=== PATIENT | female | born 1955 | race Caucasian/White ===

== ENCOUNTER 2016-09-08 18:58 | Emergency (ER) | payer BC ==
--- NOTE | 2016-09-08 19:16 | EDM.PDOC ---
ED HPI Skin/Rash - General Chief Complaint: Laceration Stated Complaint: LACERATION ON TOP OF HEAD Time Seen by Provider: 09/08/16 19:06 Source: Reports: Patient History Limitations: Reports: No limitations - History of Present Illness INITIAL COMMENTS - FREE TEXT/NARRATIVE: HISTORY AND PHYSICAL: History of present illness: [] 61-year-old female status post apical scalp LAC as prior arrival. No loss of consciousness. No full chest and shortness of breath no headache or fevers. Patient bumped her head on something Review of systems: As per history of present illness and below otherwise all systems reviewed and negative. Past medical history: As per history of present illness and as reviewed below otherwise noncontributory. Surgical history: As per history of present illness and as reviewed below otherwise noncontributory. Social history: No reported history of drug or alcohol abuse. Family history: As per history of present illness and as reviewed below otherwise noncontributory. Physical exam: 5 mm apical scalp black hemostatic no bony tenderness or crepitus. Normal TMs bilateral. HEENT: Atraumatic, normocephalic, pupils reactive, negative for conjunctival pallor or scleral icterus, mucous membranes moist, throat clear, neck supple, nontender, trachea midline. Lungs: Clear to auscultation, breath sounds equal bilaterally, chest nontender. Heart: S1S2, regular, negative for clicks, rubs, or JVD. Abdomen: Soft, nondistended, nontender. Negative for masses or hepatosplenomegaly. Negative for costovertebral tenderness. Pelvis: Stable nontender. Genitourinary: Deferred. Rectal: Deferred. Extremities: Atraumatic, negative for cords or calf pain. Neurovascular unremarkable. Neuro: Awake, alert, oriented. Cranial nerves II through XII unremarkable. Cerebellum unremarkable. Motor and sensory unremarkable throughout. Exam nonfocal. Diagnostics: [] Therapeutics: [] Impression: [Scalp laceration] Plan: [Signs and symptoms consistent with less than one Centimeter scalp laceration hemostatic. Wound edges well approximated. Patient is asymptomatic no further workup or treatment indicated. Patient agrees with outpatient followup and strict return precautions given] Definitive disposition and diagnosis as appropriate pending reevaluation and review of above. - Related Data Allergies Allergy/AdvReac Type Severity Reaction Status Date / Time No Known Allergies Allergy Verified 09/08/16 19:01 Home Meds: Ambulatory Orders Medication Instructions Recorded Confirmed Levothyroxine [Synthroid] 1 tab PO DAILY 09/08/16 09/08/16 Past Medical History Cardiovascular History: Reports: Blood clots/VTE/DVT - Infectious Disease History Infectious Disease History: Reports: None - Past Surgical History GI Surgical History: Reports: Cholecystectomy Female Surgical History: Reports: section, Hysterectomy Musculoskeletal Surgical History: Reports: Knee replacement Social & Family History - Tobacco Use Smoking Status *Q: Never Smoker Second Hand Smoke Exposure: No ED ROS GENERAL - Review of Systems Review Of Systems: See Below (History of present illness) ED EXAM, SKIN/RASH Exam: See Below (History of present illness) Course - Vital Signs Last Recorded V/S: Last Vital Signs Temp 36.4 C 09/08/16 19:02 Pulse 65 09/08/16 19:02 Resp 16 09/08/16 19:02 BP 121/60 09/08/16 19:02 Pulse Ox 99 09/08/16 19:02 Departure - Departure Time of Disposition: 19:13 Disposition: Home, Self-Care 01 Condition: good Clinical Impression: Scalp laceration Instructions: Laceration Care, Adult, [id number] Referrals: PCP,None [Primary Care Provider] - Forms: ED Department Discharge Additional Instructions: wound care. return for signs of infection. motrin or tylenol as needed for soreness. pcp 2d for wound check.
== END 2016-09-08 19:20 | disposition home or self-care (01) ==
LOC: MW.ED 18:58
DX: S01.01XA Laceration without foreign body of scalp, initial encounter (principal); Z79.899 Other long term (current) drug therapy; Z90.49 Acquired absence of other specified parts of digestive tract; Z90.710 Acquired absence of both cervix and uterus; Z96.659 Presence of unspecified artificial knee joint; W22.8XXA Striking against or struck by other objects, initial encounter
CPT/HCPCS: 99282

== ENCOUNTER 2018-08-07 06:39 | Day surgery (SDC) | payer BC ==
[~2018-08-07 06:39] MED LIST: Lactated Ringers 1,000 ML IV SCH; Sodium Chloride 0.9% 10 ML SDV IV PRN; Sodium Chloride 0.9% 10 ML Syringe FLUSH PRN; Sodium Chloride 0.9% 2.5 ML Syringe FLUSH PRN
[2018-08-07] MEDS ORDERED: fentaNYL 100 MCG/2 ML SDV ONE (07:06)
[2018-08-07] MEDS ORDERED: Propofol 200 MG/20 ML SDV ONE (07:06)
[2018-08-07] MEDS ORDERED: Lidocaine 2% 5 ML SDV ONE (07:06)
--- NOTE | 2018-08-07 07:21 | PCM.PREANE ---
Preanesthetic Assessment - Anesthesia/Transfusion/Family Hx Anesthesia History: Prior Anesthesia Without Reaction Family History of Anesthesia Reaction: No Transfusion History: No Prior Transfusion(s) - Review of Systems General: No Symptoms Pulmonary: No Symptoms Cardiovascular: No Symptoms Gastrointestinal: No Symptoms Neurological: No Symptoms Other: Reports: None - Physical Assessment Height: 5 ft 3 in Weight: 80.286 kg ASA Class: 2 Mental Status: Alert & Oriented x3 Airway Class: Mallampati = 2 Dentition: Reports: Normal Dentition Thyro-Mental Finger Breadths: 3 Mouth Opening Finger Breadths: 3 ROM/Head Extension: Full Lungs: Clear to Auscultation, Normal Respiratory Effort Cardiovascular: Regular Rate, Regular Rhythm - Allergies Allergies/Adverse Reactions: Allergies Allergy/AdvReac Type Severity Reaction Status Date / Time No Known Allergies Allergy Verified 07/30/18 11:43 - Acknowledgements Anesthesia Type Planned: MAC Pt an Appropriate Candidate for the Planned Anesthesia: Yes Alternatives and Risks of Anesthesia Discussed w Pt/Guardian: Yes Pt/Guardian Understands and Agrees with Anesthesia Plan: Yes PreAnesthesia Questionnaire HEENT History: Reports: Other (See Below) Other HEENT History: wears glasses Cardiovascular History: Reports: Blood Clots/VTE/DVT Other Cardiovascular History: hx of DVT left leg after knee surgery Respiratory History: Reports: None Gastrointestinal History: Reports: None Genitourinary History: Reports: None 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: Musculoskeletal History: Reports: Fracture, Osteoarthritis Other Musculoskeletal History: hx of fx left arm as a child Neurological History: Reports: None Psychiatric History: Reports: None Endocrine/Metabolic History: Reports: Hypothyroidism, Obesity/BMI 30+ Hematologic History: Reports: None Immunologic History: Reports: None Oncologic (Cancer) History: Reports: None Dermatologic History: Reports: None - Infectious Disease History Infectious Disease History: Reports: None - Past Surgical History Head Surgeries/Procedures: Reports: None GI Surgical History: Reports: Appendectomy, Cholecystectomy, Colonoscopy Female Surgical History: Reports: Section, Hysterectomy Musculoskeletal Surgical History: Reports: Knee Replacement Other Musculoskeletal Surgeries/Procedures:: left partial knee arthroplasty - SUBSTANCE USE Smoking Status *Q: Never Smoker Recreational Drug Use History: No - HOME MEDS Home Medications: Home Meds Levothyroxine [Synthroid] 50 mcg PO DAILY 09/08/16 [History] Celecoxib 200 mg PO DAILY 07/30/18 [History] - CURRENT (IN HOUSE) MEDS Current Meds: Current Medications Lactated Ringer's (Ringers, Lactated) 1,000 mls @ 125 mls/hr IV ASDIRECTED JUAN M Sodium Chloride (Saline Flush) 10 ml FLUSH ASDIRECTED PRN PRN Reason: Keep Vein Open Sodium Chloride (Saline Flush) 2.5 ml FLUSH ASDIRECTED PRN PRN Reason: Keep Vein Open Sodium Chloride (Saline Flush) 10 ml FLUSH ASDIRECTED PRN PRN Reason: Keep Vein Open Sodium Chloride (Saline Flush) 2.5 ml FLUSH ASDIRECTED PRN PRN Reason: Keep Vein Open Sodium Chloride (Normal Saline) 10 ml IV ASDIRECTED PRN PRN Reason: IV Use Discontinued Medications Fentanyl (Sublimaze) Confirm Administered Dose 100 mcg .ROUTE .STK-MED ONE Stop: 08/07/18 07:07 Lidocaine (Xylocaine-Mpf 2%) Confirm Administered Dose 5 ml .ROUTE .STK-MED ONE Stop: 08/07/18 07:07 Propofol (Diprivan 20 Ml) Confirm Administered Dose 400 mg .ROUTE .STK-MED ONE Stop: 08/07/18 07:07
[2018-08-07] MEDS ORDERED: Glycopyrrolate 0.2 MG/ML SDV ONE (08:26)
[2018-08-07] MEDS ORDERED: ePHEDrine 50 MG/ML SDV ONE (08:34)
[2018-08-07] MEDS ORDERED: Phenylephrine/Normal Saline 100 MCG/ML 10 ML Syringe ONE (08:36)
--- NOTE | 2018-08-07 09:27 | PCM.POSTAN ---
POST ANESTHESIA ASSESSMENT - MENTAL STATUS Mental Status: Alert, Oriented - RESPIRATORY Respiratory Status: Respiratory Rate WNL, Airway Patent, O2 Saturation Stable - CARDIOVASCULAR CV Status: Pulse Rate WNL, Blood Pressure Stable - GASTROINTESTINAL GI Status: No Symptoms - POST OP HYDRATION Hydration Status: Adequate & Stable
--- NOTE | 2018-08-07 09:28 | PCM48HPAN ---
Post Anesthesia Note - EVALUATION WITHIN 48HRS OF ANESTHETIC Vital Signs in Normal Range: Yes Patient Participated in Evaluation: Yes Respiratory Function Stable: Yes Airway Patent: Yes Cardiovascular Function Stable: Yes Hydration Status Stable: Yes Pain Control Satisfactory: Yes Nausea and Vomiting Control Satisfactory: Yes Mental Status Recovered: Yes Resp Rate: 16
--- NOTE | 2018-08-07 10:12 | PCM.OPNOTE ---
- General Post-Op/Procedure Note Date of Surgery/Procedure: 08/07/18 Operative Procedure(s): Colonoscopy with biopsy Findings: 2 sigmoid colon polyps, diverticulosis Pre Op Diagnosis: Screening colonoscopy Post-Op Diagnosis: Diverticulosis, sigmoid colon polyp x 2 Anesthesia Technique: MAC Primary Surgeon: Glendy Connell Condition: Good
[2018-08-07 11:23] VITALS: BP 116/54
--- NOTE | 2018-08-07 18:17 | OR ---
SURGEON: BRITTANY CHRIS MD DATE OF PROCEDURE: 08/07/2018 PREOPERATIVE DIAGNOSIS: Screening colonoscopy. POSTOPERATIVE DIAGNOSES: 1. Sigmoid colon polyps x2. 2. Diverticulosis. PROCEDURE PERFORMED: Screening colonoscopy with biopsy. ANESTHESIA: MAC. INSTRUMENT USED: Olympus colonoscope. EXTENT OF EXAM: To the cecum. PREPARATION: Good. LIMITATIONS: None. INDICATIONS FOR EXAMINATION: The patient is a 62-year-old female who presents for a screening colonoscopy. I explained the procedure, expected perioperative course, and risks including bleeding, infection or damage to surrounding structures including perforation. The patient verbalized understanding and wishes to proceed. PROCEDURE IN DETAIL: The patient was brought into the endoscopy suite and placed in a left lateral decubitus position. A time-out was completed verifying the patient's name, age, date of , allergies, and procedure to be performed. Monitored anesthesia care was induced and continuous oxygen was provided via nasal cannula throughout the procedure. After adequate sedation was achieved, a well lubricated colonoscope was inserted into the rectum and advanced under direct visualization to the level of the cecum. The cecum was identified by both visual and anatomic landmarks. A photograph was taken of the cecal cap as well as with the scope retroflexed within the cecum. The scope was then straightened out and fully withdrawn while examining the color, texture, anatomy, and integrity of the mucosa from the cecum to the anal canal. At 30 cm, the patient was found to have 1 small sessile colon polyp. This was removed in piecemeal fashion using a cold biopsy forceps. Just distal to this was a much larger polyp. This was removed using a hot snare. The patient was also noted to have diverticulosis scattered throughout the sigmoid colon. The scope was then brought into the rectum and retroflexed to allow visualization of the anal canal opening. This appeared normal and a photograph was taken. The scope was then straightened out and fully withdrawn. The cecum to anus time was 14 minutes. The patient tolerated the procedure well and was transferred to the PACU in stable condition. ENDOSCOPIC DIAGNOSES: 1. Sigmoid colon polyps x2. 2. Diverticulosis. RECOMMENDATIONS: Follow up in clinic in 2 weeks. YARIEL SANCHEZ /[id number]
== END 2018-08-07 09:36 | disposition home or self-care (01) ==
LOC: MW.SDS 06:39
PROVIDERS: ATTEND Surgery
DX: Z12.11 Encounter for screening for malignant neoplasm of colon (principal); D12.5 Benign neoplasm of sigmoid colon; K57.30 Diverticulosis of large intestine without perforation or abscess without bleeding; E03.9 Hypothyroidism, unspecified; M17.11 Unilateral primary osteoarthritis, right knee; Z80.0 Family history of malignant neoplasm of digestive organs; Z79.890 Hormone replacement therapy
CPT/HCPCS: 45380; 45385; 88305; J2001; J2370; J2704; J3010; J3490; J7120

== ENCOUNTER 2018-12-08 06:48 | Inpatient (IN) | payer BC ==
[~2018-12-08 06:48] MED LIST changes: +Acetaminophen 1,000 MG in Premix Bag 1 BAG IV SCH; +Famotidine 20 MG/2 ML SDV IVPUSH SCH; +Ketorolac 30 MG/ML SDV IVPUSH SCH; -Lactated Ringers 1,000 ML IV SCH; +Ropivacaine 49.25 ML, Ketorolac 30 MG, EPINEPHrine 0.5 MG, cloNIDine 80 MCG in Sodium C... INJECT SCH; +Scopolamine 1.5 MG Transdermal Patch TRDERM SCH; -Sodium Chloride 0.9% 10 ML SDV IV PRN; -Sodium Chloride 0.9% 10 ML Syringe FLUSH PRN; -Sodium Chloride 0.9% 2.5 ML Syringe FLUSH PRN
[2018-12-08] MEDS ORDERED: Midazolam 1 MG/ML 2 ML SDV ONE (07:10)
[2018-12-08] MEDS ORDERED: fentaNYL 100 MCG/2 ML SDV ONE (07:10)
[2018-12-08] MEDS ORDERED: Lidocaine 2% 5 ML SDV ONE (07:10)
[2018-12-08] MEDS ORDERED: Propofol 200 MG/20 ML SDV ONE ×2 (07:10→08:53)
[2018-12-08] MEDS: Lactated Ringers 1,000 ML IV SCH ×2 (07:20→14:46)
--- NOTE | 2018-12-08 07:31 | PCM.PREANE ---
Preanesthetic Assessment - Anesthesia/Transfusion/Family Hx Anesthesia History: Prior Anesthesia Without Reaction Family History of Anesthesia Reaction: No Transfusion History: No Prior Transfusion(s) Intubation History: Unknown - Review of Systems General: No Symptoms Pulmonary: No Symptoms Cardiovascular: No Symptoms Gastrointestinal: No Symptoms Neurological: No Symptoms Other: Reports: None - Physical Assessment O2 Sat by Pulse Oximetry: 96 Respiratory Rate: 18 Vital Signs: Last Vital Signs Temp 36.6 C 12/08/18 07:15 Pulse 64 12/08/18 07:15 Resp 18 12/08/18 07:15 BP 133/62 12/08/18 07:15 Pulse Ox 96 12/08/18 07:15 Height: 5 ft 3 in Weight: 78.471 kg ASA Class: 2 Mental Status: Alert & Oriented x3 Airway Class: Mallampati = 2 Dentition: Reports: Normal Dentition (small chip front incisor) Thyro-Mental Finger Breadths: 3 Mouth Opening Finger Breadths: 3 ROM/Head Extension: Full Lungs: Clear to Auscultation, Normal Respiratory Effort Cardiovascular: Regular Rate, Regular Rhythm - Allergies Allergies/Adverse Reactions: Allergies Allergy/AdvReac Type Severity Reaction Status Date / Time No Known Allergies Allergy Verified 12/04/18 15:28 - Blood Blood Available: No - Anesthesia Plan Pre-Op Medication Ordered: None - Acknowledgements Anesthesia Type Planned: Spinal (general anesthesia back-up plan) Pt an Appropriate Candidate for the Planned Anesthesia: Yes Alternatives and Risks of Anesthesia Discussed w Pt/Guardian: Yes Pt/Guardian Understands and Agrees with Anesthesia Plan: Yes PreAnesthesia Questionnaire HEENT History: Reports: Other (See Below) Other HEENT History: wears glasses, hx of fx nose Cardiovascular History: Reports: Blood Clots/VTE/DVT Other Cardiovascular History: DVD left leg after partial knee replacement 4-5 years ago Respiratory History: Reports: None Gastrointestinal History: Reports: Colon Polyp Genitourinary History: Reports: None 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: Musculoskeletal History: Reports: Fracture, Osteoarthritis Other Musculoskeletal History: hx of fx arm as a child Neurological History: Reports: None Psychiatric History: Reports: None Endocrine/Metabolic History: Reports: Hypothyroidism, Obesity/BMI 30+ Hematologic History: Reports: None Immunologic History: Reports: None Oncologic (Cancer) History: Reports: Basal Cell Carcinoma Dermatologic History: Reports: None - Infectious Disease History Infectious Disease History: Reports: None - Past Surgical History Head Surgeries/Procedures: Reports: None GI Surgical History: Reports: Appendectomy, Cholecystectomy, Colonoscopy Female Surgical History: Reports: Section (x3), Hysterectomy Other Female Surgeries/Procedures: x3 Musculoskeletal Surgical History: Reports: Knee Replacement Other Musculoskeletal Surgeries/Procedures:: left partial knee replacement Oncologic Surgical History: Reports: Other (See Below) Other Oncologic Surgeries/Procedures: removed from face - SUBSTANCE USE Smoking Status *Q: Never Smoker Recreational Drug Use History: No - HOME MEDS Home Medications: Home Meds Levothyroxine [Synthroid] 50 mcg PO QAM 09/08/16 [History] Celecoxib 200 mg PO DAILY PRN 07/30/18 [History] Acetaminophen/HYDROcodone [Stafford 325-5 MG] 1 tab PO Q6H PRN 12/04/18 [History] - CURRENT (IN HOUSE) MEDS Current Meds: Current Medications Famotidine (Pepcid) 40 mg IVPUSH ONARRIVE JUAN M Acetaminophen 1,000 mg/ Premix 100 mls @ 400 mls/hr IV ONARRIVE JUAN M Cefazolin Sodium/Dextrose 2 gm (/ Premix) 50 mls @ 100 mls/hr IV ONCALL JUAN M Ropivacaine 49.25 ml/Ketorolac Tromethamine 30 mg/Epinephrine HCl 0.5 mg/ Clonidine HCl 80 mcg/ Sodium Chloride 75 mls @ 50 mls/sec INJECT ASDIRECTED JUAN M Lactated Ringer's (Ringers, Lactated) 1,000 mls @ 100 mls/hr IV ASDIRECTED JUAN M Tranexamic Acid 2,000 mg/ (Sodium Chloride) 120 mls @ 600 mls/hr IV ASDIRECTED ONE Stop: 12/08/18 08:11 Ketorolac Tromethamine (Toradol) 30 mg IVPUSH ONARRIVE JUAN M Scopolamine (Transderm-Scop) 1.5 mg TRDERM ONARRIVE JUAN M Discontinued Medications Fentanyl (Sublimaze) Confirm Administered Dose 100 mcg .ROUTE .STK-MED ONE Stop: 12/08/18 07:11 Lidocaine (Xylocaine-Mpf 2%) Confirm Administered Dose 5 ml .ROUTE .STK-MED ONE Stop: 12/08/18 07:11 Midazolam HCl (Versed 1 Mg/Ml) Confirm Administered Dose 2 mg .ROUTE .STK-MED ONE Stop: 12/08/18 07:11 Propofol (Diprivan 20 Ml) Confirm Administered Dose 400 mg .ROUTE .STK-MED ONE Stop: 12/08/18 07:11
[2018-12-08] MEDS ORDERED: ceFAZolin 2 GM in Premix Bag 1 BAG IV SCH (08:00)
[2018-12-08] MEDS ORDERED: Tranexamic Acid 2,000 MG in Sodium Chloride 0.9% 100 ML IV ONE (08:00)
[2018-12-08] MEDS ORDERED: ceFAZolin 1 GM Vial ONE (08:40)
[2018-12-08] MEDS ORDERED: Sodium Chloride 0.9% 20 ML ONE (08:40)
[2018-12-08] MEDS ORDERED: Glycopyrrolate 0.2 MG/ML SDV ONE (08:40)
[2018-12-08] MEDS ORDERED: Albuterol 0.083% 2.5 MG/3 ML Neb Soln NEB PRN (09:16)
[2018-12-08] MEDS ORDERED: 50% Dextrose in Water 50 ML Syringe IVPUSH PRN (09:16)
[2018-12-08] MEDS ORDERED: Atropine 0.1 MG/ML 10 ML Syringe IVPUSH PRN ×2 (09:16)
[2018-12-08] MEDS ORDERED: EPINEPHrine 1:10,000 1 MG/10 ML Syringe IVPUSH PRN (09:16)
[2018-12-08] MEDS ORDERED: fentaNYL 100 MCG/2 ML SDV IVPUSH PRN (09:16)
[2018-12-08] MEDS ORDERED: Naloxone 0.4 MG/ML Syringe IVPUSH PRN (09:16)
[2018-12-08] MEDS ORDERED: Ondansetron 4 MG/2 ML SDV IVPUSH PRN (09:54)
[2018-12-08] MEDS ORDERED: diphenhydrAMINE 25 MG Cap PO PRN (09:54)
[2018-12-08] MEDS ORDERED: Sodium Chloride 0.9% 2.5 ML Syringe FLUSH PRN (09:54)
[2018-12-08] MEDS ORDERED: Aluminum Hydroxide/Magnesium Hydroxide/Simethicone Susp 30 ML Cup PO PRN (09:54)
[2018-12-08] MEDS ORDERED: Docusate Sodium 100 MG Cap PO PRN (09:54)
[2018-12-08] MEDS ORDERED: Bisacodyl 10 MG Supp RECTAL PRN (09:54)
[2018-12-08] MEDS ORDERED: Sodium Chloride 0.9% 10 ML Syringe FLUSH PRN (09:54)
[2018-12-08] MEDS ORDERED: Ketorolac 30 MG/ML SDV IVPUSH SCH (10:00)
[2018-12-08] MEDS ORDERED: Morphine 2 MG/ML Syringe IVPUSH PRN (10:05)
--- NOTE | 2018-12-08 10:21 | PCM.OPNOTE ---
- General Post-Op/Procedure Note Date of Surgery/Procedure: 12/08/18 Operative Procedure(s): R TKA Post-Op Diagnosis: DJD R knee Anesthesia Technique: Moderate Sedation, Spinal Primary Surgeon: Sandra Thao Breakfast Host: Jalyn Pastor Breakfast Host: Julia Franklin EBL in mLs: 50 Condition: Good Free Text/Narrative:: tt=42 min #[id number]
[2018-12-08] MEDS: oxyCODONE 5 MG Tab PO PRN ×2 (11:57→18:29)
[2018-12-08] MEDS: Ketorolac 30 MG/ML SDV IVPUSH SCH ×2 (13:36→18:44)
[2018-12-08] MEDS: Acetaminophen 1,000 MG in Premix Bag 1 BAG IV SCH ×2 (13:43→20:45)
--- NOTE | 2018-12-08 16:55 | CR ---
Indication: Right knee arthroplasty. Technique: Two views of the right knee were obtained. Comparison: None Findings: Postoperative changes of a right knee arthroplasty are identified. Air is identified within the soft tissues. Surgical jaymie are identified along the anterior skin line. Impression: Postoperative changes of a right knee arthroplasty. Dictated by Robina Waller MD @ Dec 08 2018 4:52PM Signed by Dr. Robina Waller @ Dec 08 2018 4:53PM
--- NOTE | 2018-12-08 16:57 | OR ---
SURGEON: Sandra Thao MD DATE OF PROCEDURE: 12/08/2018 PREOPERATIVE DIAGNOSIS: Degenerative joint disease, right knee, tricompartmental. POSTOPERATIVE DIAGNOSIS: Degenerative joint disease, right knee, tricompartmental. PROCEDURE: Right total knee arthroplasty using patient specific instrumentation. PRIMARY SURGEON: Sandra Thao MD. ASSISTANTS: Jalyn Pastor PA-C and BETH Augustin. [employer]ERCIAL SALES CONSULTANT: Retraction, prepping, draping, positioning, and closure assistance. ANESTHESIA: Spinal with sedation. ESTIMATED BLOOD LOSS: 50 mL. TOURNIQUET TIME: 42 minutes. COMPLICATIONS: None. DVT PROPHYLAXIS: PAS boot and PROMISE hose to the nonoperative leg. IMPLANTS USED: Pawel Persona femoral component size 7 standard (LPS), tibial component size E, 11 mm all-polyethylene articular surface, and 35 mm all-polyethylene patella. INTRAOPERATIVE FINDINGS: Showed severe tricompartmental degenerative changes with osteophyte formation. There was a groove measuring approximately 5 mm x 10 mm over the central portion of the lateral femoral condyle. No significant synovitis was noted. Bone quality was normal. BRIEF HISTORY: Marizol is a 63-year-old female who has had complaint of progressive right knee pain. She had failed conservative treatment including cortisone injections. Due to her lack of response to conservative treatment, I did recommend surgical intervention. The risks and goals of the procedure were discussed with the patient and were documented preoperatively. She agreed to proceed. DESCRIPTION OF PROCEDURE: The patient was properly identified and brought to the operating room. The patient was then transferred from the operating room cart and placed on the operating table in a supine position. Anesthesia was administered by the anesthesia staff. After adequate anesthesia was obtained, a well-padded tourniquet was applied to the surgical lower extremity. Rogers catheter was placed. The lower extremity was then prepped in standard fashion using ChloraPrep solution. It was then sterilely draped. A time-out was performed to ensure correct site and procedure. Preoperative antibiotics were given along with one gram of tranexamic acid IV. The surgical site had been marked preoperatively. An Esmarch was used to exsanguinate the right lower extremity and the tourniquet was inflated. An incision was made over the anterior aspect of the knee. The subcutaneous tissues were dissected down to the level of the fascia. A medial parapatellar approach to the knee was made. A portion of the infrapatellar fat pad was then excised. The distal femur was then exposed. The femoral patient-specific cutting guide was then placed. Pins were also placed. The distal femoral cutting block was placed and the distal femoral cut was made. Instrumentation was then removed. Both Whitesides' line and the epicondylar axis were then marked with electrocautery. The 4-in-1 cutting block was placed. This was placed in a slightly externally rotated position, which corresponded well with the previously drawn lines. The cutting guide was then pinned into position. An Harsh wing guide was used to check the depth of resection of our anterior condylar cut and it was felt that no notching would occur. The anterior condylar cut was then made followed by the posterior condylar cut. Both the posterior chamfer and anterior chamfer cuts were then made. The cutting block was then removed along with the excess bony remnants. We then turned our attention to the tibia. The anterior cruciate ligament and posterior cruciate ligament were released and a posterior cruciate ligament retractor was placed to allow the tibia to be pulled anteriorly. The tibial patient-specific guide was then placed on the proximal tibia. This fit anatomically. The pins were then placed. The proximal tibia cutting guide was then placed and screwed into position. The proximal tibial resection was then made with care being taken to protect the patellar tendon. The bony resection was then removed. The remainder of the medial and lateral meniscus were then excised. Care was taken to protect the popliteus tendon. The tibia was then sized to the appropriate size. The distal femur was then elevated. The posterior capsule was stripped off of the distal femur both medially and laterally. The posterior capsule along with the medial and lateral gutters were then injected with a standard mixture consisting of clonidine, epinephrine, Toradol, and Ropivacaine, unless any allergies were found preoperatively. The femoral component was then placed onto the distal femur in a slightly lateral position. This fit the femur well. A box cut was then made without difficulty. This was then removed. The tibial trial along with the polyethylene liner was then placed. The knee came easily into full extension and was stable to varus and valgus stressing both in full extension and flexion. Any additional releases were performed at this time. We then returned our attention to the patella. The patella was everted and towel clamps were used to hold the patella in position. It was resected to a 15 millimeter thickness. It was then sized to the appropriate size. It was prepared in the usual fashion after placing the predetermined size clamps. This was placed in a slightly superior and medial position. The clamp was then removed. The patellar trial button was placed. The knee was taken through a range of motion using the no-touch technique. The patella tracked centrally. A drop florentino was then placed to check alignment. All instruments were then removed from the knee. The tibial sizer was then placed on the tibia. The tibia was prepared in the usual fashion using the reamer and broach. This was then removed. All bony surfaces were copiously irrigated with Pulsavac solution. They were then suctioned dry. Cement was prepared on the back table in the usual manner. Once it was prepared, the bone ends were again suctioned dry. The tibia was cemented into place first. This was malleted into position. Excess cement was then cleared. The femur was then placed in a similar manner. We placed the polyethylene trial into place and the knee was brought into full extension. An axial load was placed while keeping the knee in full extension. The patella button was also cemented into position and the clamp was used to hold this in place as the cement was allowed to cure. The wound was again copiously irrigated with saline solution using a Pulsavac slag dumper. Following this 1 g of tranexamic acid was applied to the wound topically. After we had adequate curing of the cement, the knee was again taken through a range of motion. The size of the polyethylene was then determined. The polyethylene trial was then removed. The tibial tray was suctioned to make sure there was no remaining soft tissue or cement. Excess cement was cleared from around the edges of the prosthesis as well. The tourniquet was then deflated. We were able to observe for any excess bleeding and none was noted. Electrocautery was used to maintain hemostasis. An additional gram of tranexamic acid was given IV. The retractors were again placed and the predetermined polyethylene was then placed. This was locked into position without difficulty. The knee was again taken through a range of motion with no change from the prior exam. The fascial layer was closed with Number One Vicryl. The subcutaneous tissues were closed with 2-0 Vicryl. The skin was closed with jaymie. Xeroform gauze was placed over the wound and a bulky dressing was applied. The patient was then awakened from anesthesia and transferred back to the operating room cart. They were brought to the recovery room in stable condition. All needle and sponge counts were correct. FAHAD SANCHEZ /[id number]
[2018-12-08] MEDS: ceFAZolin 2 GM in Premix Bag 1 BAG IV SCH (17:23)
[2018-12-09] MEDS: Ketorolac 30 MG/ML SDV IVPUSH SCH (00:50)
[2018-12-09] MEDS: oxyCODONE 5 MG Tab PO PRN ×2 (00:50→05:45)
[2018-12-09] MEDS: ceFAZolin 2 GM in Premix Bag 1 BAG IV SCH (00:55)
[2018-12-09] MEDS: Acetaminophen 1,000 MG in Premix Bag 1 BAG IV SCH (02:00)
[2018-12-09] MEDS: Famotidine 20 MG Tab PO SCH (08:46)
[2018-12-09] MEDS: Apixaban 2.5 MG Tab PO SCH ×2 (08:47→20:18)
[2018-12-09] MEDS: Levothyroxine 50 MCG Tab PO SCH (08:47)
[2018-12-09] MEDS: Celecoxib 100 MG Cap PO SCH ×2 (08:47→20:18)
[2018-12-09] MEDS: Acetaminophen/oxyCODONE 325-5 MG Tab PO PRN ×4 (08:48→20:15)
[2018-12-09] MEDS: Polyethylene Glycol 3350 Powder 17 GM Packet PO SCH (08:49)
--- NOTE | 2018-12-09 11:09 | PCM.SURGPN ---
<Julia Franklin A - Last Filed: 12/09/18 11:03> - General Info Date of Service: 12/09/18 (1000) Date of Surgery/Procedure: 12/08/18 POD#: 1 Post-Op Diagnosis: degenerative joint disease, right knee; s/p Right TKA Admission Diagnosis/Problem: Knee pain Functional Status: Reports: Pain Controlled (reports pain was better yesterday and overnight with increased pain at current after PT), Tolerating Diet, Ambulating (ambulating with staff & PT with wheeled walker), Urinating ( overnight urine output adequate, barrera catheter removed this am) - Review of Systems General: Reports: No Symptoms. Denies: Fever HEENT: Reports: No Symptoms Pulmonary: Reports: No Symptoms. Denies: Shortness of Breath Cardiovascular: Reports: No Symptoms. Denies: Chest Pain Gastrointestinal: Reports: No Symptoms. Denies: Abdominal Pain, Nausea, Vomiting Musculoskeletal: Reports: Joint Pain (right knee pain) Neurological: Reports: No Symptoms. Denies: Confusion Psychiatric: Reports: No Symptoms Systems Review Comment:: Has been up in chair for supper last night and breakfast this morning. Tolerating oral liquids & food without N/V. - Patient Data Vitals - Most Recent: Last Vital Signs Temp 36.5 C 12/09/18 08:00 Pulse 53 L 12/09/18 08:00 Resp 13 12/09/18 08:00 BP 123/58 L 12/09/18 08:00 Pulse Ox 98 12/09/18 08:00 Weight - Most Recent: 78.471 kg I&O - Last 24 Hours: Intake & Output 12/08/18 12/09/18 12/09/18 22:59 06:59 14:59 Intake Total 3266 2160 Output Total 1150 3300 Balance 2116 -1140 Lab Results Last 24 Hrs: Laboratory Results - last 24 hr 12/09/18 Range/Units 06:10 Hgb 11.8 L (12.0-16.0) g/dL Hct 36.2 (36.0-46.0) % Med Orders - Current: Current Medications Al Hydroxide/Mg Hydroxide (Mag-Al Plus) 30 ml PO Q4H PRN PRN Reason: Indigestion Apixaban (Eliquis) 2.5 mg PO BID JUAN M Last Admin: 12/09/18 08:47 Dose: 2.5 mg Bisacodyl (Dulcolax) 10 mg RECTAL DAILY PRN PRN Reason: Constipation Celecoxib (Celebrex) 200 mg PO BID [facility] Last Admin: 12/09/18 08:47 Dose: 200 mg Diphenhydramine HCl (Benadryl) 25 - 50 mg PO Q6H PRN PRN Reason: Itching Docusate Sodium (Colace) 100 mg PO BID PRN PRN Reason: Constipation Last Admin: 12/08/18 18:30 Dose: 100 mg Famotidine (Pepcid) 40 mg PO DAILY [facility] Last Admin: 12/09/18 08:46 Dose: 40 mg Lactated Ringer's (Ringers, Lactated) 1,000 mls @ 100 mls/hr IV ASDIRECTED [facility] Last Admin: 12/08/18 14:46 Dose: 100 mls/hr Levothyroxine Sodium (Synthroid) 50 mcg PO QAM [facility] Last Admin: 12/09/18 08:47 Dose: 50 mcg Morphine Sulfate (Morphine) 1 - 3 mg IVPUSH Q3H PRN PRN Reason: Pain Ondansetron HCl (Zofran) 4 mg IVPUSH Q6H PRN PRN Reason: Nausea/Vomiting Oxycodone/Acetaminophen (Percocet 325-5 Mg) 1 - 2 tab PO Q4H PRN PRN Reason: Pain Last Admin: 12/09/18 08:48 Dose: 2 tab Polyethylene Glycol (Miralax) 17 gm PO DAILY [facility] Last Admin: 12/09/18 08:49 Dose: Not Given Scopolamine (Transderm-Scop) 1.5 mg TRDER ONARRIVE [facility] Last Admin: 12/08/18 07:28 Dose: 1.5 mg Sodium Chloride (Saline Flush) 10 ml FLUSH ASDIRECTED PRN PRN Reason: Keep Vein Open Sodium Chloride (Saline Flush) 2.5 ml FLUSH ASDIRECTED PRN PRN Reason: Keep Vein Open Discontinued Medications Albuterol (Proventil Neb Soln) 2.5 mg NEB ONETIME PRN PRN Reason: Wheezing Atropine Sulfate (Atropine 0.1 Mg/Ml) 0.5 mg IVPUSH ASDIRECTED PRN PRN Reason: Hypo-perfusion Atropine Sulfate (Atropine 0.1 Mg/Ml) 1 mg IVPUSH ASDIRECTED PRN PRN Reason: Hypo-Perfusion Cefazolin Sodium (Ancef) Confirm Administered Dose 2 gm .ROUTE .ST-MED ONE Stop: 12/08/18 08:41 Dextrose/Water (Dextrose 50% In Water) 50 ml IVPUSH ASDIRECTED PRN PRN Reason: Hypoglycemia Epinephrine HCl (Epinephrine 1:10,000) 1 mg IVPUSH ASDIRECTED PRN PRN Reason: ACLS Guidelines Famotidine (Pepcid) 40 mg IVPUSH ONARRIVE [facility] Last Admin: 12/08/18 07:34 Dose: 40 mg Fentanyl (Sublimaze) Confirm Administered Dose 100 mcg .ROUTE .STK-MED ONE Stop: 12/08/18 07:11 Fentanyl (Sublimaze) 50 - 100 mcg IVPUSH Q5M PRN PRN Reason: Pain Glycopyrrolate (Robinul) Confirm Administered Dose 0.2 mg .ROUTE .[facility]-MED ONE Stop: 12/08/18 08:41 Acetaminophen 1,000 mg/ Premix 100 mls @ 400 mls/hr IV ONARRIVE [facility] Last Admin: 12/08/18 07:44 Dose: 400 mls/hr Cefazolin Sodium/Dextrose 2 gm (/ Premix) 50 mls @ 100 mls/hr IV ONCALL [facility] Ropivacaine 49.25 ml/Ketorolac Tromethamine 30 mg/Epinephrine HCl 0.5 mg/ Clonidine HCl 80 mcg/ Sodium Chloride 75 mls @ 50 mls/sec INJECT ASDIRECTED [facility] Tranexamic Acid 2,000 mg/ (Sodium Chloride) 120 mls @ 600 mls/hr IV ASDIRECTED ONE Stop: 12/08/18 08:11 Last Admin: 12/08/18 10:52 Dose: Not Given Sodium Chloride (Normal Saline) Confirm Administered Dose 20 mls @ as directed .ROUTE .STK-MED ONE Stop: 12/08/18 08:41 Acetaminophen 1,000 mg/ Premix 100 mls @ 400 mls/hr IV Q6H [facility] Stop: 12/09/18 02:14 Last Admin: 12/09/18 02:00 Dose: 400 mls/hr Cefazolin Sodium/Dextrose 2 gm (/ Premix) 50 mls @ 100 mls/hr IV Q8H [facility] Stop: 12/09/18 01:29 Last Admin: 12/09/18 00:55 Dose: 100 mls/hr Ketorolac Tromethamine (Toradol) 30 mg IVPUSH ONARRIVE [facility] Last Admin: 12/08/18 07:31 Dose: 30 mg Ketorolac Tromethamine (Toradol) 30 mg IVPUSH Q6H [facility] Stop: 12/09/18 05:00 Last Admin: 12/08/18 10:55 Dose: Not Given Ketorolac Tromethamine (Toradol) 30 mg IVPUSH Q6H [facility] Stop: 12/09/18 05:00 Last Admin: 12/09/18 00:50 Dose: 30 mg Lidocaine (Xylocaine-Mpf 2%) Confirm Administered Dose 5 ml .ROUTE .STK-MED ONE Stop: 12/08/18 07:11 Midazolam HCl (Versed 1 Mg/Ml) Confirm Administered Dose 2 mg .ROUTE .STK-MED ONE Stop: 12/08/18 07:11 Naloxone HCl (Narcan) 0.1 mg IVPUSH ASDIRECTED PRN PRN Reason: Respiratory Depression Oxycodone HCl (Oxycodone) 5 - 10 mg PO Q4H PRN PRN Reason: Pain Stop: 12/09/18 08:00 Last Admin: 12/09/18 05:45 Dose: 10 mg Propofol (Diprivan 20 Ml) Confirm Administered Dose 400 mg .ROUTE .STK-MED ONE Stop: 12/08/18 07:11 Propofol (Diprivan 20 Ml) Confirm Administered Dose 200 mg .ROUTE .STK-MED ONE Stop: 12/08/18 08:54 Tranexamic Acid (Cyklokapron) Confirm Administered Dose 2,000 mg .ROUTE .STK- MED ONE Stop: 12/08/18 08:19 - Exam Wound/Incisions: Dressing Dry and Intact, No Drainage (Surgical dressing removed. Surgical incision well approximated with jaymie. No active drainage. Minimal surrounding swelling. ). No: Erythema Quality Assessment: DVT Prophylaxis (Compression stockings, SCDs bilaterally, early ambulation & Eliquis) General: Alert, Oriented, Cooperative, No Acute Distress HEENT: Pupils Equal Lungs: Normal Respiratory Effort Cardiovascular: Regular Rate, Regular Rhythm Extremities: No Pedal Edema, Normal Capillary Refill, Other (AT/EHL/gastroc 5/ 5. Sensation grossly intact RLE. PP2+) Skin: Warm, Dry Neurological: No New Focal Deficit, Normal Speech, Normal Tone Psy/Mental Status: Alert, Normal Affect, Normal Mood - Problem List Review Problem List Initiated/Reviewed/Updated: Yes - My Orders Last 24 Hours: Active Orders 24 hr Category Date Time Status Regular Diet [DIET] Diet 12/08/18 Lunch Active HEMOGLOBIN/HEMATOCRIT,HH [HEME] DAILY Lab 12/10/18 06:00 Ordered Acetaminophen/oxyCODONE [Percocet 325-5 MG] Med 12/09/18 06:00 Active 1 - 2 tab PO Q4H PRN Apixaban [Eliquis] Med 12/09/18 09:00 Active 2.5 mg PO BID Celecoxib [CeleBREX] Med 12/09/18 09:00 Active 200 mg PO BID Famotidine [Pepcid] Med 12/09/18 09:00 Active 40 mg PO DAILY Levothyroxine [Synthroid] Med 12/09/18 09:00 Active 50 mcg PO QAM Morphine Med 12/08/18 10:05 Active 1 - 3 mg IVPUSH Q3H PRN Polyethylene Glycol 3350 [MiraLAX] Med 12/09/18 09:00 Active 17 gm PO DAILY Convert IV to Saline Lock [OM.PC] PRN Oth 12/09/18 10:00 Ordered Medication Orders Al Hydroxide/Mg Hydroxide (Mag-Al Plus) 30 ml PO Q4H PRN PRN Reason: Indigestion Apixaban (Eliquis) 2.5 mg PO BID [facility] Last Admin: 12/09/18 08:47 Dose: 2.5 mg Bisacodyl (Dulcolax) 10 mg RECTAL DAILY PRN PRN Reason: Constipation Celecoxib (Celebrex) 200 mg PO BID [facility] Last Admin: 12/09/18 08:47 Dose: 200 mg Diphenhydramine HCl (Benadryl) 25 - 50 mg PO Q6H PRN PRN Reason: Itching Docusate Sodium (Colace) 100 mg PO BID PRN PRN Reason: Constipation Last Admin: 12/08/18 18:30 Dose: 100 mg Famotidine (Pepcid) 40 mg PO DAILY [facility] Last Admin: 12/09/18 08:46 Dose: 40 mg Lactated Ringer's (Ringers, Lactated) 1,000 mls @ 100 mls/hr IV ASDIRECTED [facility] Last Admin: 12/08/18 14:46 Dose: 100 mls/hr Infusion: 12/08/18 14:46 Dose: 100 mls/hr Admin: 12/08/18 07:20 Dose: 100 mls/hr Levothyroxine Sodium (Synthroid) 50 mcg PO QAM [facility] Last Admin: 12/09/18 08:47 Dose: 50 mcg Morphine Sulfate (Morphine) 1 - 3 mg IVPUSH Q3H PRN PRN Reason: Pain Ondansetron HCl (Zofran) 4 mg IVPUSH Q6H PRN PRN Reason: Nausea/Vomiting Oxycodone/Acetaminophen (Percocet 325-5 Mg) 1 - 2 tab PO Q4H PRN PRN Reason: Pain Last Admin: 12/09/18 08:48 Dose: 2 tab Polyethylene Glycol (Miralax) 17 gm PO DAILY [facility] Last Admin: 12/09/18 08:49 Dose: Not Given Scopolamine (Transderm-Scop) 1.5 mg TRDERM ONARRIVE [facility] Last Admin: 12/08/18 07:28 Dose: 1.5 mg Sodium Chloride (Saline Flush) 10 ml FLUSH ASDIRECTED PRN PRN Reason: Keep Vein Open Sodium Chloride (Saline Flush) 2.5 ml FLUSH ASDIRECTED PRN PRN Reason: Keep Vein Open - Assessment Assessment (Free Text/Narrative):: 1) s/p Right TKA 2) Post-hemorrhagic anemia (stable) 3) Post-operative pain - Plan Plan (Free Text/Narrative):: Overall, she was doing well post-operatively, but with increased pain at the current time. Tolerating po foods/fluids without N/V. Tolerating oral medications without N/ V. Barrera catheter removed this am. Surgical dressing removed. CDI. Large AquaCell bandage applied. Completed 2gm of IV Ancef. DVT prophylaxis includes compression stockings & SCDs, and Eliquis started today (h/o DVT LLE). Ambulating well with nursing and PT with assistance of walker. Neurovascular exam WNL. VSS/afebrile. Discussed discharge home, but secondary to increased pain this morning following PT, plan continued stay for pain control. <Sandra Thao R - Last Filed: 12/10/18 09:43> - Patient Data Vitals - Most Recent: Last Vital Signs Temp 97.2 F 12/10/18 08:00 Pulse 60 12/10/18 08:00 Resp 16 12/10/18 08:00 BP 110/63 12/10/18 08:00 Pulse Ox 95 12/10/18 08:00 I&O - Last 24 Hours: Intake & Output 12/09/18 12/10/18 12/10/18 22:59 06:59 14:59 Intake Total 1100 950 Output Total 1000 3100 Balance 100 -2150 Lab Results Last 24 Hrs: Laboratory Results - last 24 hr 12/10/18 Range/Units 05:10 Hgb 11.6 L (12.0-16.0) g/dL Hct 35.0 L (36.0-46.0) % Med Orders - Current: Current Medications Al Hydroxide/Mg Hydroxide (Mag-Al Plus) 30 ml PO Q4H PRN PRN Reason: Indigestion Apixaban (Eliquis) 2.5 mg PO BID [facility] Last Admin: 12/10/18 08:53 Dose: 2.5 mg Bisacodyl (Dulcolax) 10 mg RECTAL DAILY PRN PRN Reason: Constipation Celecoxib (Celebrex) 200 mg PO BID [facility] Last Admin: 12/10/18 08:53 Dose: 200 mg Diphenhydramine HCl (Benadryl) 25 - 50 mg PO Q6H PRN PRN Reason: Itching Docusate Sodium (Colace) 100 mg PO BID PRN PRN Reason: Constipation Last Admin: 12/08/18 18:30 Dose: 100 mg Famotidine (Pepcid) 40 mg PO DAILY [facility] Last Admin: 12/10/18 08:53 Dose: 40 mg Levothyroxine Sodium (Synthroid) 50 mcg PO QAM [facility] Last Admin: 12/10/18 08:53 Dose: 50 mcg Morphine Sulfate (Morphine) 1 - 3 mg IVPUSH Q3H PRN PRN Reason: Pain Ondansetron HCl (Zofran) 4 mg IVPUSH Q6H PRN PRN Reason: Nausea/Vomiting Oxycodone/Acetaminophen (Percocet 325-5 Mg) 1 - 2 tab PO Q4H PRN PRN Reason: Pain Last Admin: 12/10/18 08:51 Dose: 2 tab Polyethylene Glycol (Miralax) 17 gm PO DAILY [facility] Last Admin: 12/10/18 08:50 Dose: 17 gm Scopolamine (Transderm-Scop) 1.5 mg TRDERM ONARRIVE [facility] Last Admin: 12/08/18 07:28 Dose: 1.5 mg Sodium Chloride (Saline Flush) 10 ml FLUSH ASDIRECTED PRN PRN Reason: Keep Vein Open Sodium Chloride (Saline Flush) 2.5 ml FLUSH ASDIRECTED PRN PRN Reason: Keep Vein Open Discontinued Medications Albuterol (Proventil Neb Soln) 2.5 mg NEB ONETIME PRN PRN Reason: Wheezing Atropine Sulfate (Atropine 0.1 Mg/Ml) 0.5 mg IVPUSH ASDIRECTED PRN PRN Reason: Hypo-perfusion Atropine Sulfate (Atropine 0.1 Mg/Ml) 1 mg IVPUSH ASDIRECTED PRN PRN Reason: Hypo-Perfusion Cefazolin Sodium (Ancef) Confirm Administered Dose 2 gm .ROUTE .STK-MED ONE Stop: 12/08/18 08:41 Dextrose/Water (Dextrose 50% In Water) 50 ml IVPUSH ASDIRECTED PRN PRN Reason: Hypoglycemia Epinephrine HCl (Epinephrine 1:10,000) 1 mg IVPUSH ASDIRECTED PRN PRN Reason: ACLS Guidelines Famotidine (Pepcid) 40 mg IVPUSH ONARRIVE [facility] Last Admin: 12/08/18 07:34 Dose: 40 mg Fentanyl (Sublimaze) Confirm Administered Dose 100 mcg .ROUTE .STK-MED ONE Stop: 12/08/18 07:11 Fentanyl (Sublimaze) 50 - 100 mcg IVPUSH Q5M PRN PRN Reason: Pain Glycopyrrolate (Robinul) Confirm Administered Dose 0.2 mg .ROUTE .STK-MED ONE Stop: 12/08/18 08:41 Acetaminophen 1,000 mg/ Premix 100 mls @ 400 mls/hr IV ONARRIVE [facility] Last Admin: 12/08/18 07:44 Dose: 400 mls/hr Cefazolin Sodium/Dextrose 2 gm (/ Premix) 50 mls @ 100 mls/hr IV ONCALL [facility] Ropivacaine 49.25 ml/Ketorolac Tromethamine 30 mg/Epinephrine HCl 0.5 mg/ Clonidine HCl 80 mcg/ Sodium Chloride 75 mls @ 50 mls/sec INJECT ASDIRECTED JUAN M Lactated Ringer's (Ringers, Lactated) 1,000 mls @ 100 mls/hr IV ASDIRECTED [facility] Last Admin: 12/08/18 14:46 Dose: 100 mls/hr Tranexamic Acid 2,000 mg/ (Sodium Chloride) 120 mls @ 600 mls/hr IV ASDIRECTED ONE Stop: 12/08/18 08:11 Last Admin: 12/08/18 10:52 Dose: Not Given Sodium Chloride (Normal Saline) Confirm Administered Dose 20 mls @ as directed .ROUTE .STK-MED ONE Stop: 12/08/18 08:41 Acetaminophen 1,000 mg/ Premix 100 mls @ 400 mls/hr IV Q6H [facility] Stop: 12/09/18 02:14 Last Admin: 12/09/18 02:00 Dose: 400 mls/hr Cefazolin Sodium/Dextrose 2 gm (/ Premix) 50 mls @ 100 mls/hr IV Q8H [facility] Stop: 12/09/18 01:29 Last Admin: 12/09/18 00:55 Dose: 100 mls/hr Ketorolac Tromethamine (Toradol) 30 mg IVPUSH ONARRIVE [facility] Last Admin: 12/08/18 07:31 Dose: 30 mg Ketorolac Tromethamine (Toradol) 30 mg IVPUSH Q6H [facility] Stop: 12/09/18 05:00 Last Admin: 12/08/18 10:55 Dose: Not Given Ketorolac Tromethamine (Toradol) 30 mg IVPUSH Q6H [facility] Stop: 12/09/18 05:00 Last Admin: 12/09/18 00:50 Dose: 30 mg Lidocaine (Xylocaine-Mpf 2%) Confirm Administered Dose 5 ml .ROUTE .STK-MED ONE Stop: 12/08/18 07:11 Midazolam HCl (Versed 1 Mg/Ml) Confirm Administered Dose 2 mg .ROUTE .STK-MED ONE Stop: 12/08/18 07:11 Naloxone HCl (Narcan) 0.1 mg IVPUSH ASDIRECTED PRN PRN Reason: Respiratory Depression Oxycodone HCl (Oxycodone) 5 - 10 mg PO Q4H PRN PRN Reason: Pain Stop: 12/09/18 08:00 Last Admin: 12/09/18 05:45 Dose: 10 mg Propofol (Diprivan 20 Ml) Confirm Administered Dose 400 mg .ROUTE .STK-MED ONE Stop: 12/08/18 07:11 Propofol (Diprivan 20 Ml) Confirm Administered Dose 200 mg .ROUTE .[facility]-MED ONE Stop: 12/08/18 08:54 Tranexamic Acid (Cyklokapron) Confirm Administered Dose 2,000 mg .ROUTE .[facility]- MED ONE Stop: 12/08/18 08:19 - My Orders Last 24 Hours: Active Orders 24 hr Category Date Time Status Apixaban [Eliquis] Med 12/09/18 09:00 Active 2.5 mg PO BID Celecoxib [CeleBREX] Med 12/09/18 09:00 Active 200 mg PO BID Famotidine [Pepcid] Med 12/09/18 09:00 Active 40 mg PO DAILY Levothyroxine [Synthroid] Med 12/09/18 09:00 Active 50 mcg PO QAM Polyethylene Glycol 3350 [MiraLAX] Med 12/09/18 09:00 Active 17 gm PO DAILY Convert IV to Saline Lock [OM.PC] PRN Oth 12/09/18 10:00 Ordered Medication Orders Al Hydroxide/Mg Hydroxide (Mag-Al Plus) 30 ml PO Q4H PRN PRN Reason: Indigestion Apixaban (Eliquis) 2.5 mg PO BID [facility] Last Admin: 12/10/18 08:53 Dose: 2.5 mg Admin: 12/09/18 20:18 Dose: 2.5 mg Admin: 12/09/18 08:47 Dose: 2.5 mg Bisacodyl (Dulcolax) 10 mg RECTAL DAILY PRN PRN Reason: Constipation Celecoxib (Celebrex) 200 mg PO BID [facility] Last Admin: 12/10/18 08:53 Dose: 200 mg Admin: 12/09/18 20:18 Dose: 200 mg Admin: 12/09/18 08:47 Dose: 200 mg Diphenhydramine HCl (Benadryl) 25 - 50 mg PO Q6H PRN PRN Reason: Itching Docusate Sodium (Colace) 100 mg PO BID PRN PRN Reason: Constipation Last Admin: 12/08/18 18:30 Dose: 100 mg Famotidine (Pepcid) 40 mg PO DAILY [facility] Last Admin: 12/10/18 08:53 Dose: 40 mg Admin: 12/09/18 08:46 Dose: 40 mg Levothyroxine Sodium (Synthroid) 50 mcg PO QAM [facility] Last Admin: 12/10/18 08:53 Dose: 50 mcg Admin: 12/09/18 08:47 Dose: 50 mcg Morphine Sulfate (Morphine) 1 - 3 mg IVPUSH Q3H PRN PRN Reason: Pain Ondansetron HCl (Zofran) 4 mg IVPUSH Q6H PRN PRN Reason: Nausea/Vomiting Oxycodone/Acetaminophen (Percocet 325-5 Mg) 1 - 2 tab PO Q4H PRN PRN Reason: Pain Last Admin: 12/10/18 08:51 Dose: 2 tab Admin: 12/10/18 04:27 Dose: 2 tab Admin: 12/10/18 00:20 Dose: 2 tab Admin: 12/09/18 20:15 Dose: 2 tab Admin: 12/09/18 16:15 Dose: 2 tab Admin: 12/09/18 12:27 Dose: 2 tab Admin: 12/09/18 08:48 Dose: 2 tab Polyethylene Glycol (Miralax) 17 gm PO DAILY [facility] Last Admin: 12/10/18 08:50 Dose: 17 gm Admin: 12/09/18 08:49 Dose: Not Given Scopolamine (Transderm-Scop) 1.5 mg TRDERM ONARRIVE [facility] Last Admin: 12/08/18 07:28 Dose: 1.5 mg Sodium Chloride (Saline Flush) 10 ml FLUSH ASDIRECTED PRN PRN Reason: Keep Vein Open Sodium Chloride (Saline Flush) 2.5 ml FLUSH ASDIRECTED PRN PRN Reason: Keep Vein Open - Plan Plan (Free Text/Narrative):: Late entry: Patient seen and examined on 12/09/18 at 1000. Agree with above note. No other complaints. Will plan to keep overnight for additional pain control and further PT. Plan discharge home tomorrow. sven
--- NOTE | 2018-12-09 11:30 | PCM48HPAN ---
Post Anesthesia Note - EVALUATION WITHIN 48HRS OF ANESTHETIC Vital Signs in Normal Range: Yes Patient Participated in Evaluation: Yes Respiratory Function Stable: Yes Airway Patent: Yes Cardiovascular Function Stable: Yes Hydration Status Stable: Yes Pain Control Satisfactory: Yes Nausea and Vomiting Control Satisfactory: Yes Mental Status Recovered: Yes Resp Rate: 13
[2018-12-10] MEDS: Acetaminophen/oxyCODONE 325-5 MG Tab PO PRN ×3 (00:20→08:51)
[2018-12-10 08:03] VITALS: BP 110/63; PULSE 60
[2018-12-10] MEDS: Polyethylene Glycol 3350 Powder 17 GM Packet PO SCH (08:50)
[2018-12-10] MEDS: Levothyroxine 50 MCG Tab PO SCH (08:53)
[2018-12-10] MEDS: Celecoxib 100 MG Cap PO SCH (08:53)
[2018-12-10] MEDS: Famotidine 20 MG Tab PO SCH (08:53)
[2018-12-10] MEDS: Apixaban 2.5 MG Tab PO SCH (08:53)
--- NOTE | 2018-12-10 11:36 | PCM.SURGPN ---
<Julia Franklin - Last Filed: 12/10/18 11:30> - General Info Date of Service: 12/10/18 (1100) Date of Surgery/Procedure: 12/08/18 (s/p Right TKA) POD#: 2 Post-Op Diagnosis: degenerative joint disease, right knee Functional Status: Reports: Pain Controlled, Tolerating Diet, Ambulating, Urinating - Review of Systems General: Reports: No Symptoms. Denies: Fever Pulmonary: Reports: No Symptoms Cardiovascular: Reports: No Symptoms Gastrointestinal: Reports: No Symptoms. Denies: Nausea, Vomiting Musculoskeletal: Reports: Joint Pain ("things much better today than yesterday") Neurological: Reports: No Symptoms - Patient Data Vitals - Most Recent: Last Vital Signs Temp 36.2 C 12/10/18 08:00 Pulse 60 12/10/18 08:00 Resp 16 12/10/18 08:00 BP 110/63 12/10/18 08:00 Pulse Ox 95 12/10/18 08:00 Weight - Most Recent: 78.471 kg I&O - Last 24 Hours: Intake & Output 12/09/18 12/10/18 12/10/18 22:59 06:59 14:59 Intake Total 1100 950 Output Total 1000 3100 Balance 100 -2150 Lab Results Last 24 Hrs: Laboratory Results - last 24 hr 12/10/18 Range/Units 05:10 Hgb 11.6 L (12.0-16.0) g/dL Hct 35.0 L (36.0-46.0) % Med Orders - Current: Current Medications Al Hydroxide/Mg Hydroxide (Mag-Al Plus) 30 ml PO Q4H PRN PRN Reason: Indigestion Apixaban (Eliquis) 2.5 mg PO BID [facility] Last Admin: 12/10/18 08:53 Dose: 2.5 mg Bisacodyl (Dulcolax) 10 mg RECTAL DAILY PRN PRN Reason: Constipation Celecoxib (Celebrex) 200 mg PO BID [facility] Last Admin: 12/10/18 08:53 Dose: 200 mg Diphenhydramine HCl (Benadryl) 25 - 50 mg PO Q6H PRN PRN Reason: Itching Docusate Sodium (Colace) 100 mg PO BID PRN PRN Reason: Constipation Last Admin: 08/05/19 18:30 Dose: 100 mg Famotidine (Pepcid) 40 mg PO DAILY [facility] Last Admin: 12/10/18 08:53 Dose: 40 mg Levothyroxine Sodium (Synthroid) 50 mcg PO QAM [facility] Last Admin: 12/10/18 08:53 Dose: 50 mcg Morphine Sulfate (Morphine) 1 - 3 mg IVPUSH Q3H PRN PRN Reason: Pain Ondansetron HCl (Zofran) 4 mg IVPUSH Q6H PRN PRN Reason: Nausea/Vomiting Oxycodone/Acetaminophen (Percocet 325-5 Mg) 1 - 2 tab PO Q4H PRN PRN Reason: Pain Last Admin: 12/10/18 08:51 Dose: 2 tab Polyethylene Glycol (Miralax) 17 gm PO DAILY [facility] Last Admin: 12/10/18 08:50 Dose: 17 gm Scopolamine (Transderm-Scop) 1.5 mg TRDERM ONARRIVE [facility] Last Admin: 12/08/18 07:28 Dose: 1.5 mg Sodium Chloride (Saline Flush) 10 ml FLUSH ASDIRECTED PRN PRN Reason: Keep Vein Open Sodium Chloride (Saline Flush) 2.5 ml FLUSH ASDIRECTED PRN PRN Reason: Keep Vein Open Discontinued Medications Albuterol (Proventil Neb Soln) 2.5 mg NEB ONETIME PRN PRN Reason: Wheezing Atropine Sulfate (Atropine 0.1 Mg/Ml) 0.5 mg IVPUSH ASDIRECTED PRN PRN Reason: Hypo-perfusion Atropine Sulfate (Atropine 0.1 Mg/Ml) 1 mg IVPUSH ASDIRECTED PRN PRN Reason: Hypo-Perfusion Cefazolin Sodium (Ancef) Confirm Administered Dose 2 gm .ROUTE .STK-MED ONE Stop: 12/08/18 08:41 Dextrose/Water (Dextrose 50% In Water) 50 ml IVPUSH ASDIRECTED PRN PRN Reason: Hypoglycemia Epinephrine HCl (Epinephrine 1:10,000) 1 mg IVPUSH ASDIRECTED PRN PRN Reason: ACLS Guidelines Famotidine (Pepcid) 40 mg IVPUSH ONARRIVE [facility] Last Admin: 12/08/18 07:34 Dose: 40 mg Fentanyl (Sublimaze) Confirm Administered Dose 100 mcg .ROUTE .STK-MED ONE Stop: 12/08/18 07:11 Fentanyl (Sublimaze) 50 - 100 mcg IVPUSH Q5M PRN PRN Reason: Pain Glycopyrrolate (Robinul) Confirm Administered Dose 0.2 mg .ROUTE .[facility] ONE Stop: 12/08/18 08:41 Acetaminophen 1,000 mg/ Premix 100 mls @ 400 mls/hr IV ONARRIVE [facility] Last Admin: 12/08/18 07:44 Dose: 400 mls/hr Cefazolin Sodium/Dextrose 2 gm (/ Premix) 50 mls @ 100 mls/hr IV ONCALL [facility] Ropivacaine 49.25 ml/Ketorolac Tromethamine 30 mg/Epinephrine HCl 0.5 mg/ Clonidine HCl 80 mcg/ Sodium Chloride 75 mls @ 50 mls/sec INJECT ASDIRECTED [facility] Lactated Ringer's (Ringers, Lactated) 1,000 mls @ 100 mls/hr IV ASDIRECTED [facility] Last Admin: 12/08/18 14:46 Dose: 100 mls/hr Tranexamic Acid 2,000 mg/ (Sodium Chloride) 120 mls @ 600 mls/hr IV ASDIRECTED [facility] Stop: 12/08/18 08:11 Last Admin: 12/08/18 10:52 Dose: Not Given Sodium Chloride (Normal Saline) Confirm Administered Dose 20 mls @ as directed .ROUTE .[facility] ONE Stop: 12/08/18 08:41 Acetaminophen 1,000 mg/ Premix 100 mls @ 400 mls/hr IV Q6H [facility] Stop: 12/09/18 02:14 Last Admin: 12/09/18 02:00 Dose: 400 mls/hr Cefazolin Sodium/Dextrose 2 gm (/ Premix) 50 mls @ 100 mls/hr IV Q8H [facility] Stop: 12/09/18 01:29 Last Admin: 12/09/18 00:55 Dose: 100 mls/hr Ketorolac Tromethamine (Toradol) 30 mg IVPUSH ONARRIVE [facility] Last Admin: 12/08/18 07:31 Dose: 30 mg Ketorolac Tromethamine (Toradol) 30 mg IVPUSH Q6H [facility] Stop: 12/09/18 05:00 Last Admin: 12/08/18 10:55 Dose: Not Given Ketorolac Tromethamine (Toradol) 30 mg IVPUSH Q6H [facility] Stop: 12/09/18 05:00 Last Admin: 12/09/18 00:50 Dose: 30 mg Lidocaine (Xylocaine-Mpf 2%) Confirm Administered Dose 5 ml .ROUTE .STK-MED ONE Stop: 12/08/18 07:11 Midazolam HCl (Versed 1 Mg/Ml) Confirm Administered Dose 2 mg .ROUTE .STK-MED ONE Stop: 12/08/18 07:11 Naloxone HCl (Narcan) 0.1 mg IVPUSH ASDIRECTED PRN PRN Reason: Respiratory Depression Oxycodone HCl (Oxycodone) 5 - 10 mg PO Q4H PRN PRN Reason: Pain Stop: 12/09/18 08:00 Last Admin: 12/09/18 05:45 Dose: 10 mg Propofol (Diprivan 20 Ml) Confirm Administered Dose 400 mg .ROUTE .STK-MED ONE Stop: 12/08/18 07:11 Propofol (Diprivan 20 Ml) Confirm Administered Dose 200 mg .ROUTE .STK-MED ONE Stop: 12/08/18 08:54 Tranexamic Acid (Cyklokapron) Confirm Administered Dose 2,000 mg .ROUTE .STK- MED ONE Stop: 12/08/18 08:19 - Exam Wound/Incisions: Other (AquaCell intact) Quality Assessment: DVT Prophylaxis (Eliquis, ambulation, compression stockings and SCDs bilaterally) General: Alert, Oriented, Cooperative, No Acute Distress HEENT: Pupils Equal Lungs: Normal Respiratory Effort Cardiovascular: Regular Rate Extremities: No Pedal Edema, Other (At/Ehl/gastroc 5/5 Sensation grossly intact to LE PP2+) Skin: Warm, Dry Neurological: Normal Speech, Normal Tone Psy/Mental Status: Alert, Normal Affect, Normal Mood - Problem List Review Problem List Initiated/Reviewed/Updated: Yes - My Orders Last 24 Hours: Medication Orders Al Hydroxide/Mg Hydroxide (Mag-Al Plus) 30 ml PO Q4H PRN PRN Reason: Indigestion Apixaban (Eliquis) 2.5 mg PO BID [facility] Last Admin: 12/10/18 08:53 Dose: 2.5 mg Admin: 12/09/18 20:18 Dose: 2.5 mg Admin: 12/09/18 08:47 Dose: 2.5 mg Bisacodyl (Dulcolax) 10 mg RECTAL DAILY PRN PRN Reason: Constipation Celecoxib (Celebrex) 200 mg PO BID [facility] Last Admin: 12/10/18 08:53 Dose: 200 mg Admin: 12/09/18 20:18 Dose: 200 mg Admin: 12/09/18 08:47 Dose: 200 mg Diphenhydramine HCl (Benadryl) 25 - 50 mg PO Q6H PRN PRN Reason: Itching Docusate Sodium (Colace) 100 mg PO BID PRN PRN Reason: Constipation Last Admin: 12/08/18 18:30 Dose: 100 mg Famotidine (Pepcid) 40 mg PO DAILY [facility] Last Admin: 12/10/18 08:53 Dose: 40 mg Admin: 12/09/18 08:46 Dose: 40 mg Levothyroxine Sodium (Synthroid) 50 mcg PO QAM [facility] Last Admin: 12/10/18 08:53 Dose: 50 mcg Admin: 12/09/18 08:47 Dose: 50 mcg Morphine Sulfate (Morphine) 1 - 3 mg IVPUSH Q3H PRN PRN Reason: Pain Ondansetron HCl (Zofran) 4 mg IVPUSH Q6H PRN PRN Reason: Nausea/Vomiting Oxycodone/Acetaminophen (Percocet 325-5 Mg) 1 - 2 tab PO Q4H PRN PRN Reason: Pain Last Admin: 12/10/18 08:51 Dose: 2 tab Admin: 12/10/18 04:27 Dose: 2 tab Admin: 12/10/18 00:20 Dose: 2 tab Admin: 12/09/18 20:15 Dose: 2 tab Admin: 12/09/18 16:15 Dose: 2 tab Admin: 12/09/18 12:27 Dose: 2 tab Admin: 12/09/18 08:48 Dose: 2 tab Polyethylene Glycol (Miralax) 17 gm PO DAILY [facility] Last Admin: 12/10/18 08:50 Dose: 17 gm Admin: 12/09/18 08:49 Dose: Not Given Scopolamine (Transderm-Scop) 1.5 mg TRDERM ONARRIVE [facility] Last Admin: 12/08/18 07:28 Dose: 1.5 mg Sodium Chloride (Saline Flush) 10 ml FLUSH ASDIRECTED PRN PRN Reason: Keep Vein Open Sodium Chloride (Saline Flush) 2.5 ml FLUSH ASDIRECTED PRN PRN Reason: Keep Vein Open - Assessment Assessment (Free Text/Narrative):: 1) S/P RIGHT TKA 2) post-hemorrhagic anemia (stable) - Plan Plan (Free Text/Narrative):: Marizol is doing better today. Pain is manageable with 2 Percocet 5/325mg averaging every 4 hours. Tolerating food/fluids and oral narcotics without N/V. Afebrile. VSS. Ambulating well with staff & PT with aid of four wheeled walker. Marizol feels ready for discharge home today. <Sandra Thao R - Last Filed: 12/10/18 11:43> - Patient Data Vitals - Most Recent: Last Vital Signs Temp 97.2 F 12/10/18 08:00 Pulse 60 12/10/18 08:00 Resp 16 12/10/18 08:00 BP 110/63 12/10/18 08:00 Pulse Ox 95 12/10/18 08:00 I&O - Last 24 Hours: Intake & Output 12/09/18 12/10/18 12/10/18 22:59 06:59 14:59 Intake Total 1100 950 Output Total 1000 3100 Balance 100 -2150 Lab Results Last 24 Hrs: Laboratory Results - last 24 hr 12/10/18 Range/Units 05:10 Hgb 11.6 L (12.0-16.0) g/dL Hct 35.0 L (36.0-46.0) % Med Orders - Current: Current Medications Al Hydroxide/Mg Hydroxide (Mag-Al Plus) 30 ml PO Q4H PRN PRN Reason: Indigestion Apixaban (Eliquis) 2.5 mg PO BID [facility] Last Admin: 12/10/18 08:53 Dose: 2.5 mg Bisacodyl (Dulcolax) 10 mg RECTAL DAILY PRN PRN Reason: Constipation Celecoxib (Celebrex) 200 mg PO BID [facility] Last Admin: 12/10/18 08:53 Dose: 200 mg Diphenhydramine HCl (Benadryl) 25 - 50 mg PO Q6H PRN PRN Reason: Itching Docusate Sodium (Colace) 100 mg PO BID PRN PRN Reason: Constipation Last Admin: 12/08/18 18:30 Dose: 100 mg Famotidine (Pepcid) 40 mg PO DAILY [facility] Last Admin: 12/10/18 08:53 Dose: 40 mg Levothyroxine Sodium (Synthroid) 50 mcg PO QAM [facility] Last Admin: 12/10/18 08:53 Dose: 50 mcg Morphine Sulfate (Morphine) 1 - 3 mg IVPUSH Q3H PRN PRN Reason: Pain Ondansetron HCl (Zofran) 4 mg IVPUSH Q6H PRN PRN Reason: Nausea/Vomiting Oxycodone/Acetaminophen (Percocet 325-5 Mg) 1 - 2 tab PO Q4H PRN PRN Reason: Pain Last Admin: 12/10/18 08:51 Dose: 2 tab Polyethylene Glycol (Miralax) 17 gm PO DAILY [facility] Last Admin: 12/10/18 08:50 Dose: 17 gm Scopolamine (Transderm-Scop) 1.5 mg TRDERM ONARRIVE [facility] Last Admin: 12/08/18 07:28 Dose: 1.5 mg Sodium Chloride (Saline Flush) 10 ml FLUSH ASDIRECTED PRN PRN Reason: Keep Vein Open Sodium Chloride (Saline Flush) 2.5 ml FLUSH ASDIRECTED PRN PRN Reason: Keep Vein Open Discontinued Medications Albuterol (Proventil Neb Soln) 2.5 mg NEB ONETIME PRN PRN Reason: Wheezing Atropine Sulfate (Atropine 0.1 Mg/Ml) 0.5 mg IVPUSH ASDIRECTED PRN PRN Reason: Hypo-perfusion Atropine Sulfate (Atropine 0.1 Mg/Ml) 1 mg IVPUSH ASDIRECTED PRN PRN Reason: Hypo-Perfusion Cefazolin Sodium (Ancef) Confirm Administered Dose 2 gm .ROUTE .STK-MED ONE Stop: 12/08/18 08:41 Dextrose/Water (Dextrose 50% In Water) 50 ml IVPUSH ASDIRECTED PRN PRN Reason: Hypoglycemia Epinephrine HCl (Epinephrine 1:10,000) 1 mg IVPUSH ASDIRECTED PRN PRN Reason: ACLS Guidelines Famotidine (Pepcid) 40 mg IVPUSH ONARRIVE [facility] Last Admin: 12/08/18 07:34 Dose: 40 mg Fentanyl (Sublimaze) Confirm Administered Dose 100 mcg .ROUTE .STK-MED ONE Stop: 12/08/18 07:11 Fentanyl (Sublimaze) 50 - 100 mcg IVPUSH Q5M PRN PRN Reason: Pain Glycopyrrolate (Robinul) Confirm Administered Dose 0.2 mg .ROUTE .STK-MED ONE Stop: 12/08/18 08:41 Acetaminophen 1,000 mg/ Premix 100 mls @ 400 mls/hr IV ONARRIVE [facility] Last Admin: 12/08/18 07:44 Dose: 400 mls/hr Cefazolin Sodium/Dextrose 2 gm (/ Premix) 50 mls @ 100 mls/hr IV ONCALL [facility] Ropivacaine 49.25 ml/Ketorolac Tromethamine 30 mg/Epinephrine HCl 0.5 mg/ Clonidine HCl 80 mcg/ Sodium Chloride 75 mls @ 50 mls/sec INJECT ASDIRECTED [facility] Lactated Ringer's (Ringers, Lactated) 1,000 mls @ 100 mls/hr IV ASDIRECTED [facility] Last Admin: 12/08/18 14:46 Dose: 100 mls/hr Tranexamic Acid 2,000 mg/ (Sodium Chloride) 120 mls @ 600 mls/hr IV ASDIRECTED ONE Stop: 12/08/18 08:11 Last Admin: 12/08/18 10:52 Dose: Not Given Sodium Chloride (Normal Saline) Confirm Administered Dose 20 mls @ as directed .ROUTE .[facility] ONE Stop: 12/08/18 08:41 Acetaminophen 1,000 mg/ Premix 100 mls @ 400 mls/hr IV Q6H [facility] Stop: 12/09/18 02:14 Last Admin: 12/09/18 02:00 Dose: 400 mls/hr Cefazolin Sodium/Dextrose 2 gm (/ Premix) 50 mls @ 100 mls/hr IV Q8H [facility] Stop: 12/09/18 01:29 Last Admin: 12/09/18 00:55 Dose: 100 mls/hr Ketorolac Tromethamine (Toradol) 30 mg IVPUSH ONARRIVE [facility] Last Admin: 12/08/18 07:31 Dose: 30 mg Ketorolac Tromethamine (Toradol) 30 mg IVPUSH Q6H [facility] Stop: 12/09/18 05:00 Last Admin: 12/08/18 10:55 Dose: Not Given Ketorolac Tromethamine (Toradol) 30 mg IVPUSH Q6H [facility] Stop: 12/09/18 05:00 Last Admin: 12/09/18 00:50 Dose: 30 mg Lidocaine (Xylocaine-Mpf 2%) Confirm Administered Dose 5 ml .ROUTE .STK-MED ONE Stop: 12/08/18 07:11 Midazolam HCl (Versed 1 Mg/Ml) Confirm Administered Dose 2 mg .ROUTE .STK-MED ONE Stop: 12/08/18 07:11 Naloxone HCl (Narcan) 0.1 mg IVPUSH ASDIRECTED PRN PRN Reason: Respiratory Depression Oxycodone HCl (Oxycodone) 5 - 10 mg PO Q4H PRN PRN Reason: Pain Stop: 12/09/18 08:00 Last Admin: 12/09/18 05:45 Dose: 10 mg Propofol (Diprivan 20 Ml) Confirm Administered Dose 400 mg .ROUTE .STK-MED ONE Stop: 12/08/18 07:11 Propofol (Diprivan 20 Ml) Confirm Administered Dose 200 mg .ROUTE .STK-MED ONE Stop: 12/08/18 08:54 Tranexamic Acid (Cyklokapron) Confirm Administered Dose 2,000 mg .ROUTE .STK- MED ONE Stop: 12/08/18 08:19 - My Orders Last 24 Hours: Active Orders 24 hr Category Date Time Status Ready for Discharge [RC] PER UNIT ROUTINE Care 12/10/18 11:36 Active Medication Orders Al Hydroxide/Mg Hydroxide (Mag-Al Plus) 30 ml PO Q4H PRN PRN Reason: Indigestion Apixaban (Eliquis) 2.5 mg PO BID [facility] Last Admin: 12/10/18 08:53 Dose: 2.5 mg Admin: 12/09/18 20:18 Dose: 2.5 mg Admin: 12/09/18 08:47 Dose: 2.5 mg Bisacodyl (Dulcolax) 10 mg RECTAL DAILY PRN PRN Reason: Constipation Celecoxib (Celebrex) 200 mg PO BID [facility] Last Admin: 12/10/18 08:53 Dose: 200 mg Admin: 12/09/18 20:18 Dose: 200 mg Admin: 12/09/18 08:47 Dose: 200 mg Diphenhydramine HCl (Benadryl) 25 - 50 mg PO Q6H PRN PRN Reason: Itching Docusate Sodium (Colace) 100 mg PO BID PRN PRN Reason: Constipation Last Admin: 08/05/19 18:30 Dose: 100 mg Famotidine (Pepcid) 40 mg PO DAILY [facility] Last Admin: 12/10/18 08:53 Dose: 40 mg Admin: 12/09/18 08:46 Dose: 40 mg Levothyroxine Sodium (Synthroid) 50 mcg PO QAM [facility] Last Admin: 12/10/18 08:53 Dose: 50 mcg Admin: 12/09/18 08:47 Dose: 50 mcg Morphine Sulfate (Morphine) 1 - 3 mg IVPUSH Q3H PRN PRN Reason: Pain Ondansetron HCl (Zofran) 4 mg IVPUSH Q6H PRN PRN Reason: Nausea/Vomiting Oxycodone/Acetaminophen (Percocet 325-5 Mg) 1 - 2 tab PO Q4H PRN PRN Reason: Pain Last Admin: 12/10/18 08:51 Dose: 2 tab Admin: 12/10/18 04:27 Dose: 2 tab Admin: 12/10/18 00:20 Dose: 2 tab Admin: 12/09/18 20:15 Dose: 2 tab Admin: 12/09/18 16:15 Dose: 2 tab Admin: 12/09/18 12:27 Dose: 2 tab Admin: 12/09/18 08:48 Dose: 2 tab Polyethylene Glycol (Miralax) 17 gm PO DAILY [facility] Last Admin: 12/10/18 08:50 Dose: 17 gm Admin: 12/09/18 08:49 Dose: Not Given Scopolamine (Transderm-Scop) 1.5 mg TRDERM ONARRIVE [facility] Last Admin: 12/08/18 07:28 Dose: 1.5 mg Sodium Chloride (Saline Flush) 10 ml FLUSH ASDIRECTED PRN PRN Reason: Keep Vein Open Sodium Chloride (Saline Flush) 2.5 ml FLUSH ASDIRECTED PRN PRN Reason: Keep Vein Open - Plan Plan (Free Text/Narrative):: 1130 Patient seen and examined. Agree with above note. Patient doing much better today. Will plan to discharge home. Continue outpatient PT and Eliquis for DVT prophylaxis. Patient agrees with plan.
--- NOTE | 2018-12-10 12:41 | PCM.DCSUM1 ---
Discharge Summary - Hospital Course Free Text/Narrative:: DOCUMENT #[id number] - Discharge Data Discharge Date: 12/10/18 Discharge Disposition: Home, Self-Care 01 Condition: Good - Patient Summary/Data Operative Procedure(s) Performed: R TKA Consults: Consultations 12/08/18 09:54 PT Evaluation and Treatment [CONS] Routine - Patient Instructions Other/Special Instructions: Refer to Dr. Sandra Thao's 'Post-operative patient instructions for TOTAL KNEE ARTHROPLASTY' orange handout - Discharge Plan Prescriptions/Med Rec: Acetaminophen/oxyCODONE [Percocet 325-5 MG] 1 - 2 tab PO Q4H PRN #60 tablet PRN Reason: Pain Apixaban [Eliquis] 2.5 mg PO BID #60 tablet Celecoxib [CeleBREX] 200 mg PO DAILY #30 cap Docusate Sodium [Colace] 100 mg PO BID PRN #60 cap PRN Reason: Constipation Polyethylene Glycol 3350 [MiraLAX] 17 gm PO DAILY #600 gram Home Medications: Home Meds Levothyroxine [Synthroid] 50 mcg PO QAM 09/08/16 [History] Acetaminophen/oxyCODONE [Percocet 325-5 MG] 1 - 2 tab PO Q4H PRN #60 tablet 09/21 [Rx] Apixaban [Eliquis] 2.5 mg PO BID #60 tablet 12/08/18 [Rx] Celecoxib [CeleBREX] 200 mg PO DAILY #30 cap 12/08/18 [Rx] Docusate Sodium [Colace] 100 mg PO BID PRN #60 cap 12/08/18 [Rx] Polyethylene Glycol 3350 [MiraLAX] 17 gm PO DAILY #600 gram 12/08/18 [Rx] Patient Handouts: Acetaminophen; Oxycodone tablets, Celecoxib capsules, Docusate capsules, Apixaban oral tablets, Polyethylene Glycol powder Referrals: Sandra Thao MD [Physician] - 01/15/19 8:30 am Jalyn Pastor PA [Physician [facility] [employer] [facility]] - 12/19/18 10:00 am - Discharge Summary/Plan Comment DC Time >30 min.: No - Patient Data Vitals - Most Recent: Last Vital Signs Temp 36.2 C 12/10/18 08:00 Pulse 60 12/10/18 08:00 Resp 16 12/10/18 08:00 BP 110/63 12/10/18 08:00 Pulse Ox 95 12/10/18 08:00 Weight - Most Recent: 78.471 kg I&O - Last 24 hours: Intake & Output 12/09/18 12/10/18 12/10/18 22:59 06:59 14:59 Intake Total 1100 950 Output Total 1000 3100 Balance 100 -2150 Lab Results - Last 24 hrs: Laboratory Results - last 24 hr 12/10/18 Range/Units 05:10 Hgb 11.6 L (12.0-16.0) g/dL Hct 35.0 L (36.0-46.0) % Med Orders - Current: Current Medications Discontinued Medications Al Hydroxide/Mg Hydroxide (Mag-Al Plus) 30 ml PO Q4H PRN PRN Reason: Indigestion Albuterol (Proventil Neb Soln) 2.5 mg NEB ONETIME PRN PRN Reason: Wheezing Apixaban (Eliquis) 2.5 mg PO BID [facility] Last Admin: 12/10/18 08:53 Dose: 2.5 mg Atropine Sulfate (Atropine 0.1 Mg/Ml) 0.5 mg IVPUSH ASDIRECTED PRN PRN Reason: Hypo-perfusion Atropine Sulfate (Atropine 0.1 Mg/Ml) 1 mg IVPUSH ASDIRECTED PRN PRN Reason: Hypo-Perfusion Bisacodyl (Dulcolax) 10 mg RECTAL DAILY PRN PRN Reason: Constipation Cefazolin Sodium (Ancef) Confirm Administered Dose 2 gm .ROUTE .STK-MED ONE Stop: 12/08/18 08:41 Celecoxib (Celebrex) 200 mg PO BID [facility] Last Admin: 12/10/18 08:53 Dose: 200 mg Dextrose/Water (Dextrose 50% In Water) 50 ml IVPUSH ASDIRECTED PRN PRN Reason: Hypoglycemia Diphenhydramine HCl (Benadryl) 25 - 50 mg PO Q6H PRN PRN Reason: Itching Docusate Sodium (Colace) 100 mg PO BID PRN PRN Reason: Constipation Last Admin: 12/08/18 18:30 Dose: 100 mg Epinephrine HCl (Epinephrine 1:10,000) 1 mg IVPUSH ASDIRECTED PRN PRN Reason: ACLS Guidelines Famotidine (Pepcid) 40 mg IVPUSH ONARRIVE [facility] Last Admin: 12/08/18 07:34 Dose: 40 mg Famotidine (Pepcid) 40 mg PO DAILY [facility] Last Admin: 12/10/18 08:53 Dose: 40 mg Fentanyl (Sublimaze) Confirm Administered Dose 100 mcg .ROUTE .[facility] ONE Stop: 12/08/18 07:11 Fentanyl (Sublimaze) 50 - 100 mcg IVPUSH Q5M PRN PRN Reason: Pain Glycopyrrolate (Robinul) Confirm Administered Dose 0.2 mg .ROUTE .[facility] ONE Stop: 12/08/18 08:41 Acetaminophen 1,000 mg/ Premix 100 mls @ 400 mls/hr IV ONARRIVE [facility] Last Admin: 12/08/18 07:44 Dose: 400 mls/hr Cefazolin Sodium/Dextrose 2 gm (/ Premix) 50 mls @ 100 mls/hr IV ONCALL [facility] Ropivacaine 49.25 ml/Ketorolac Tromethamine 30 mg/Epinephrine HCl 0.5 mg/ Clonidine HCl 80 mcg/ Sodium Chloride 75 mls @ 50 mls/sec INJECT ASDIRECTED [facility] Lactated Ringer's (Ringers, Lactated) 1,000 mls @ 100 mls/hr IV ASDIRECTED [facility] Last Admin: 12/08/18 14:46 Dose: 100 mls/hr Tranexamic Acid 2,000 mg/ (Sodium Chloride) 120 mls @ 600 mls/hr IV ASDIRECTED ONE Stop: 12/08/18 08:11 Last Admin: 12/08/18 10:52 Dose: Not Given Sodium Chloride (Normal Saline) Confirm Administered Dose 20 mls @ as directed .ROUTE .[facility] ONE Stop: 12/08/18 08:41 Acetaminophen 1,000 mg/ Premix 100 mls @ 400 mls/hr IV Q6H [facility] Stop: 12/09/18 02:14 Last Admin: 12/09/18 02:00 Dose: 400 mls/hr Cefazolin Sodium/Dextrose 2 gm (/ Premix) 50 mls @ 100 mls/hr IV Q8H [facility] Stop: 12/09/18 01:29 Last Admin: 12/09/18 00:55 Dose: 100 mls/hr Ketorolac Tromethamine (Toradol) 30 mg IVPUSH ONARRIVE [facility] Last Admin: 12/08/18 07:31 Dose: 30 mg Ketorolac Tromethamine (Toradol) 30 mg IVPUSH Q6H [facility] Stop: 12/09/18 05:00 Last Admin: 12/08/18 10:55 Dose: Not Given Ketorolac Tromethamine (Toradol) 30 mg IVPUSH Q6H [facility] Stop: 12/09/18 05:00 Last Admin: 12/09/18 00:50 Dose: 30 mg Levothyroxine Sodium (Synthroid) 50 mcg PO QAM [facility] Last Admin: 12/10/18 08:53 Dose: 50 mcg Lidocaine (Xylocaine-Mpf 2%) Confirm Administered Dose 5 ml .ROUTE .STK-MED ONE Stop: 12/08/18 07:11 Midazolam HCl (Versed 1 Mg/Ml) Confirm Administered Dose 2 mg .ROUTE .STK-MED ONE Stop: 12/08/18 07:11 Morphine Sulfate (Morphine) 1 - 3 mg IVPUSH Q3H PRN PRN Reason: Pain Naloxone HCl (Narcan) 0.1 mg IVPUSH ASDIRECTED PRN PRN Reason: Respiratory Depression Ondansetron HCl (Zofran) 4 mg IVPUSH Q6H PRN PRN Reason: Nausea/Vomiting Oxycodone HCl (Oxycodone) 5 - 10 mg PO Q4H PRN PRN Reason: Pain Stop: 12/09/18 08:00 Last Admin: 12/09/18 05:45 Dose: 10 mg Oxycodone/Acetaminophen (Percocet 325-5 Mg) 1 - 2 tab PO Q4H PRN PRN Reason: Pain Last Admin: 12/10/18 08:51 Dose: 2 tab Polyethylene Glycol (Miralax) 17 gm PO DAILY [facility] Last Admin: 12/10/18 08:50 Dose: 17 gm Propofol (Diprivan 20 Ml) Confirm Administered Dose 400 mg .ROUTE .STK-MED ONE Stop: 12/08/18 07:11 Propofol (Diprivan 20 Ml) Confirm Administered Dose 200 mg .ROUTE .STK-MED ONE Stop: 12/08/18 08:54 Scopolamine (Transderm-Scop) 1.5 mg TRDERM ONARRIVE [facility] Last Admin: 12/08/18 07:28 Dose: 1.5 mg Sodium Chloride (Saline Flush) 10 ml FLUSH ASDIRECTED PRN PRN Reason: Keep Vein Open Sodium Chloride (Saline Flush) 2.5 ml FLUSH ASDIRECTED PRN PRN Reason: Keep Vein Open Tranexamic Acid (Cyklokapron) Confirm Administered Dose 2,000 mg .ROUTE .[place] ONE Stop: 12/08/18 08:19
--- NOTE | 2018-12-10 17:47 | DISCH ---
DATE OF DISCHARGE: 12/10/2018 PRIMARY CARE PHYSICIAN: Jose Liu M.D. ADMITTING DIAGNOSIS: Degenerative joint disease, right knee, tricompartmental. OTHER MEDICAL DIAGNOSIS: Hypothyroidism. DISCHARGE MEDICAL DIAGNOSES: 1. Degenerative joint disease, right knee, tricompartmental. 2. Status post right total knee arthroplasty. 3. Posthemorrhagic anemia. 4. Acute postprocedural pain. 5. Hypothyroidism. HISTORY: This is a 63-year-old female with complaints of progressive right knee pain whom failed conservative treatment including cortisone injections, underwent right total knee arthroplasty using patient specific instrumentation on December 08, [address] Sandra Thao. Procedure performed under spinal anesthesia with sedation. EBL 50 mL. Tourniquet time 42 minutes. There were no known surgical complications. She was transferred to recovery, then to Med/Surg for postop care. POD#1, she had increased pain and was not discharged that day due to the need for pain control. She was tolerating oral food and fluids and oral Narcotics without nausea or vomiting. Urine output was adequate postop day morning 1 and Rogers catheter was removed. Antibiotic coverage included Ancef 2 g administered as directed for 24 hours of coverage. She treated pain with oxycodone 10 mg, averaging dose every 5 hours. Physical therapy was initiated in the hospital. She was ambulating well with staff, PT, and wheeled walker as an assistive device. Vital signs were stable. Afebrile. Hemoglobin 11.8, then 11.6, stable. Surgical dressing was clean, dry, and intact. This was removed postop day 1 and large Aquacel dressing was applied. DVT prophylaxis included Eliquis 2.5 mg b.i.d., compression stockings, SCDs bilaterally, and early ambulation. Diligent use of polar ice therapy to minimize swelling and pain. Postop day 2, she felt ready to be discharged, as had much better pain control. She was discharged home. DISCHARGE MEDICATIONS LIST: 1. Percocet 5/325 mg 1 to 2 tabs every 4 hours p.r.n. 2. Eliquis 2.5 mg b.i.d. 3. Celebrex 200 mg daily. 4. Colace 100 mg b.i.d. p.r.n. 5. MiraLAX 17 g daily. 6. Levothyroxine daily. The patient was given Dr. Sandra Thao's postoperative instruction sheet for total knee arthroplasty. Appointments were scheduled for 10 days for suture removal, then 6 weeks follow up with Dr. Thao. She is directed to call [facility]opedic Clinic with any concerns. She will start physical therapy at building this week. NORALEXI / LAURA /[phone] MICHAEL
== END 2018-12-10 12:00 | disposition home or self-care (01) | DRG 302 ==
LOC: MW.MS 06:48 → EDSTATUS 08:00
PROVIDERS: ADMIT Orthopaedic Surgery; ATTEND Orthopaedic Surgery
PROC: 0SRC0J9 Replacement of Right Knee Joint with Synthetic Substitute, Cemented, Open Approach (ICD-10-PCS; principal; 2018-12-08)
DX: M17.11 Unilateral primary osteoarthritis, right knee (principal); E03.9 Hypothyroidism, unspecified; D62 Acute posthemorrhagic anemia; E66.9 Obesity, unspecified; Z96.652 Presence of left artificial knee joint; Z86.718 Personal history of other venous thrombosis and embolism; Z90.49 Acquired absence of other specified parts of digestive tract; Z79.899 Other long term (current) drug therapy; Z90.710 Acquired absence of both cervix and uterus; Z90.89 Acquired absence of other organs; Z98.890 Other specified postprocedural states; Z68.30 Body mass index [BMI] 30.0-30.9, adult
CPT/HCPCS: 01402; 36415; 73560-26-RT; 73560-RT; 85014; 85018; 86850; 86900; 86901; 88305; 88311; 97110-GP; 97161-GP; 97530-GP; A9270-GY; C1713; C1776; J0131; J0171; J0690; J0735; J1885; J2001; J2250; J2704; J2795; J3010; J3490; J7050; J7120

== ENCOUNTER 2020-11-17 13:44 | Emergency (ER) | payer BC ==
--- NOTE | 2020-11-17 13:54 | EDM.PDOC ---
ED HPI GENERAL MEDICAL PROBLEM - General Chief Complaint: Lower Extremity Injury/Pain Stated Complaint: BLOOD CLOT LEFT LEG Time Seen by Provider: 11/17/20 13:48 - History of Present Illness INITIAL COMMENTS - FREE TEXT/NARRATIVE: History of present illness: [] Patient with a past history of DVT has pain and swelling in the left calf. She was seen at clinic. They did a thorough evaluation and found abnormal transient popliteal thrombosis. They sent her to me for therapy. Patient has no contraindication to anticoagulants and has had them in the past. Review of systems: As per history of present illness and below otherwise all systems reviewed and negative. Past medical history: As per history of present illness and as reviewed below otherwise noncontributory. Surgical history: As per history of present illness and as reviewed below otherwise noncontributory. Social history: No reported history of drug or alcohol abuse. Family history: As per history of present illness and as reviewed below otherwise n oncontributory. Physical exam: Constitutional - well developed, well-nourished and in no acute distress HEENT - normocephalic, no evidence of trauma - external nose and mouth normal - no mass in neck and no JVD - mucosae moist EYES - full EOM, PERRL, no icterus - no evidence of inflammation, injection, or drainage Respiratory - no respiratory distress, equal bilateral expansion, lungs clear to auscultation and no abnormal lung sounds Cardiovascular - Regular Rhythm with S1 and S2 appreciated and no murmur, gallop or rub. GI - abdomen soft without distension or organomegaly - - no guard or rebound Musculoskeletal tenderness and swelling in the left calf. No gross deformity of long bones or joints - no tenderness, swelling or edema Neurologic - Alert and oriented times four - CN II-XII grossly intact - motor sensory and coordination symmetrically normal Psychiatric - appropriate mood and affect with normal thought content Hematologic - No petechiae or purpura - mucosa appropriate color and sclera not pale - normal nail bed color and refill Integument - no rash or evidence of trauma - normal turgor Diagnostics: Ultrasound showed an incomplete occlusion with a thrombosis in the popliteal vein. [] Therapeutics: [] Impression: [] Plan: [] Definitive disposition and diagnosis as appropriate pending reevaluation and review of above. - Related Data Allergies Allergy/AdvReac Type Severity Reaction Status Date / Time No Known Allergies Allergy Verified 12/08/18 11:37 Home Meds: Home Meds Levothyroxine [Synthroid] 50 mcg PO QAM 09/08/16 [History] Acetaminophen/oxyCODONE [Percocet 325-5 MG] 1 - 2 tab PO Q4H PRN #60 tablet 12/08/18 [Rx] Apixaban [Eliquis] 2.5 mg PO BID #60 tablet 12/08/18 [Rx] Celecoxib [CeleBREX] 200 mg PO DAILY #30 cap 12/08/18 [Rx] Docusate Sodium [Colace] 100 mg PO BID PRN #60 cap 12/08/18 [Rx] polyethylene glycoL 3350 [MiraLAX] 17 gm PO DAILY #600 gram 12/08/18 [Rx] Apixaban [Eliquis] 10 mg PO BID #60 tablet 11/17/20 [Rx] Past Medical History HEENT History: Reports: Other (See Below) Other HEENT History: wears glasses, hx of fx nose Cardiovascular History: Reports: Blood Clots/VTE/DVT Other Cardiovascular History: DVT left leg after partial knee replacement 4-5 years ago Respiratory History: Reports: None Gastrointestinal History: Reports: Colon Polyp Genitourinary History: Reports: None 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: Musculoskeletal History: Reports: Fracture, Osteoarthritis Other Musculoskeletal History: hx of fx arm as a child Neurological History: Reports: None Psychiatric History: Reports: None Endocrine/Metabolic History: Reports: Hypothyroidism, Obesity/BMI 30+ Hematologic History: Reports: None Immunologic History: Reports: None Oncologic (Cancer) History: Reports: Basal Cell Carcinoma Dermatologic History: Reports: None - Infectious Disease History Infectious Disease History: Reports: None - Past Surgical History Head Surgeries/Procedures: Reports: None GI Surgical History: Reports: Appendectomy, Cholecystectomy, Colonoscopy Female Surgical History: Reports: Section, Hysterectomy Other Female Surgeries/Procedures: x3 Musculoskeletal Surgical History: Reports: Knee Replacement Other Musculoskeletal Surgeries/Procedures:: left partial knee replacement, Right TKA Oncologic Surgical History: Reports: Other (See Below) Other Oncologic Surgeries/Procedures: removed from face ED ROS GENERAL - Review of Systems Review Of Systems: Comprehensive ROS is negative, except as noted in HPI. ED EXAM, GENERAL - Physical Exam Exam: See Below Free Text/Narrative:: Physical exam is in the HPI Departure - Departure Time of Disposition: 13:53 Disposition: Home, Self-Care 01 Condition: Good Clinical Impression: Deep venous thrombosis - Discharge Information Prescriptions: Apixaban [Eliquis] 10 mg PO BID #60 tablet Instructions: Deep Vein Thrombosis Additional Instructions: [facility] - Primary Care [address] [place] [address] [facility] [address] [place] [id number] The following information is given to patients seen in the emergency department who are being discharged to home. This information is to outline your options for follow-up care. We provide all patients seen in our emergency department with a follow-up referral. The need for follow-up, as well as the timing and circumstances, are variable depending upon the specifics of your emergency department visit. If you don't have a primary care physician on staff, we will provide you with a referral. We always advise you to contact your personal physician following an emergency department visit to inform them of the circumstance of the visit and for follow-up with them and/or the need for any referrals to a consulting specialist. The emergency department will also refer you to a specialist when appropriate. This referral assures that you have the opportunity for follow-up care with a specialist. All of these measure are taken in an effort to provide you with optimal care, which includes your follow-up. Under all circumstances we always encourage you to contact your private physician who remains a resource for coordinating your care. When calling for follow-up care, please make the office aware that this follow-up is from your recent emergency room visit. If for any reason you are refused follow-up, please contact the [facility] Emergency Department at and asked to speak to the emergency department charge nurse.
[2020-11-17 14:18] VITALS: BP 114/64; PULSE 58
== END 2020-11-17 14:19 | disposition home or self-care (01) ==
LOC: MW.ED 13:44
DX: I82.402 Acute embolism and thrombosis of unspecified deep veins of left lower extremity (principal); E03.9 Hypothyroidism, unspecified; E66.9 Obesity, unspecified; Z68.35 Body mass index [BMI] 35.0-35.9, adult; Z79.01 Long term (current) use of anticoagulants; Z79.899 Other long term (current) drug therapy
CPT/HCPCS: 99283

== ENCOUNTER 2023-09-17 07:47 | Day surgery (SDC) | payer BC ==
[~2023-09-17 07:47] MED LIST changes: -Acetaminophen 1,000 MG in Premix Bag 1 BAG IV SCH; -Famotidine 20 MG/2 ML SDV IVPUSH SCH; -Ketorolac 30 MG/ML SDV IVPUSH SCH; -Ropivacaine 49.25 ML, Ketorolac 30 MG, EPINEPHrine 0.5 MG, cloNIDine 80 MCG in Sodium C... INJECT SCH; -Scopolamine 1.5 MG Transdermal Patch TRDERM SCH; +Sodium Chloride 0.9% 10 ML Syringe FLUSH PRN; +Sodium Chloride 0.9% 2.5 ML Syringe FLUSH PRN; +Sodium Chloride 0.9% 20 ML SDV IV PRN
[2023-09-17] MEDS: Lactated Ringers 1,000 ML IV SCH (08:19)
[2023-09-17] MEDS ORDERED: propofoL 50 ML ONE (08:58)
[2023-09-17] MEDS ORDERED: fentaNYL 100 MCG/2 ML SDV ONE (09:21)
[2023-09-17 12:22] VITALS: BP 120/64; PULSE 61
== END 2023-09-17 10:35 | disposition home or self-care (01) ==
LOC: MW.SDS 07:47
PROVIDERS: ATTEND Surgery
DX: Z12.11 Encounter for screening for malignant neoplasm of colon (principal); K57.30 Diverticulosis of large intestine without perforation or abscess without bleeding; E03.9 Hypothyroidism, unspecified; E66.9 Obesity, unspecified; K21.9 Gastro-esophageal reflux disease without esophagitis; Z68.38 Body mass index [BMI] 38.0-38.9, adult; Z79.01 Long term (current) use of anticoagulants; Z98.890 Other specified postprocedural states; Z79.890 Hormone replacement therapy; Z86.010 Personal history of colon polyps
CPT/HCPCS: 45378; J2704; J3010; J7120